=== PATIENT | female | born 1985 | race Caucasian/White ===

== ENCOUNTER 2017-12-02 11:55 | Emergency (ER) | payer BC, OTHER ==
[2017-12-02 12:51] LABS: BASO % 0.3 % (0.0-1.0); EOS # 0.1 10^3/uL (0.0-0.50); EOS % 1.1 % (0.0-3.0); HEMATOCRIT 44.2 % (36.0-47.0); HEMOGLOBIN 15.1 g/dl (12.0-15.5); IMMATURE GRANULOCYTE % 0.5 % (0-3.0); LYMPH # 3.1 10^3/uL (1.5-4.5); LYMPH % 26.9 % (24.0-44.0); MEAN CORPUSCULAR HEMOGLOBIN 29.3 pg (27.0-33.0); MEAN CORPUSCULAR HGB CONC 34.2 g/dl (32.0-36.5); MEAN CORPUSCULAR VOLUME 85.8 fl (80.0-96.0); MONO # 0.6 10^3/uL (0.0-0.8); MONO % 5.3 % (0.0-5.0); NEUTROPHILS # 7.7 10^3/uL (1.8-7.7); NEUTROPHILS % 65.9 % (36.0-66.0); PLATELET COUNT, AUTOMATED 445 10^3/uL (150-450); RED BLOOD COUNT 5.15 10^6/uL (4.00-5.40); RED CELL DISTRIBUTION WIDTH 12.7 % (11.5-14.5); WHITE BLOOD COUNT 11.6 10^3/uL (4.0-10.0)
[2017-12-02 13:46] LABS: ANION GAP 6 MEQ/L (8-16); BLOOD UREA NITROGEN 16 MG/DL (7-18); CARBON DIOXIDE LEVEL 29 MEQ/L (21-32); CHLORIDE LEVEL 101 MEQ/L (98-107); CREATININE FOR GFR 0.64 MG/DL (0.55-1.30); GLOMERULAR FILTRATION RATE > 60.0 (>60); GLUCOSE, FASTING 82 MG/DL (70-100); POTASSIUM SERUM 4.9 MEQ/L (3.5-5.1); SODIUM LEVEL 136 MEQ/L (136-145); THYROID STIMULATING HORMONE 0.701 uIU/ML (0.358-3.740)
[2017-12-02] MEDS: KETOROLAC 30 MG/ML VIAL (J1885) IV (14:09)
[2017-12-02] MEDS: NS 1,000 ML IV ×2 (14:09→15:03)
[2017-12-02 14:44] LABS: ERYTHROCYTE SEDIMENTATION RATE 28 mm/hr (0-20)
[2017-12-02 14:48] LABS: KETONE, URINE AUTO RFX NEGATIVE (NEGATIVE); LEUKOCYTE ESTERASE UR AUTO RFX NEGATIVE (NEGATIVE); MUCUS, URINE RFX SMALL (NEGATIVE); NITRITE, URINE AUTO RFX NEGATIVE (NEGATIVE); RBC, URINE AUTO RFX 1 /HPF (0-3); SPECIFIC GRAVITY UR AUTO RFX 1.018 (1.002-1.035); SQUAM EPITHELIAL CELL UR AURFX 2 /HPF (0-6); WBC, URINE AUTO RFX 4 /HPF (0-3)
[2017-12-02] MEDS: METOCLOPRAMIDE INJ 10MG/2ML VIAL (J2765) IV (15:06)
[2017-12-02] MEDS: diphenhydrAMINE INJ 50MG/ML VIAL (J1200) IV (15:06)
[2017-12-02 15:18] LABS: ALBUMIN 3.4 GM/DL (3.2-5.2); ALBUMIN/GLOBULIN RATIO 0.77 (1.00-1.93); ALKALINE PHOSPHATASE 99 U/L (45-117); ALT/SGPT 43 U/L (12-78); AST/SGOT 32 U/L (7-37); BILIRUBIN,DIRECT < 0.1 MG/DL (0.0-0.2); BILIRUBIN,TOTAL 0.5 MG/DL (0.2-1.0); C REACTIVE PROTEIN QUANTITATIV 1.98 MG/DL (0.00-0.30); CK-MB VALUE MASS < 1.0 NG/ML (<3.6); CPK CREATINE PHOSPHOKINASE 62 U/L (26-192); LIPASE 100 U/L (73-393); MB/CK RELATIVE INDEX 1.61 (< OR =4); TOTAL PROTEIN 7.8 GM/DL (6.4-8.2); TROPONIN I < 0.02 NG/ML (< 0.10)
[2017-12-07 12:47] LABS: BEDSIDE GLUCOSE 99 MG/DL (70-105)
== END 2017-12-02 16:10 | disposition home or self-care (01) ==
LOC: M ED 11:55
DX: K58.9 Irritable bowel syndrome, unspecified (principal); E86.0 Dehydration; I95.1 Orthostatic hypotension; Z79.899 Other long term (current) drug therapy
CPT/HCPCS: J1200

== ENCOUNTER 2019-01-18 08:28 | Emergency (ER) | payer BC, OTHER, SELFPAY ==
[~2019-01-18] VITALS: Ht 162.6 cm; Wt 134.5 kg
[~2019-01-18 08:28] MED LIST: METH4TAB28 PO; PRED20TA PO
[2019-01-18] MEDS ORDERED: OMEP40CA97 PO (08:35)
[2019-01-18] MEDS ORDERED: [UNRECOGNIZED DRUG - OTHER] (08:35)
[2019-01-18] MEDS ORDERED: NS 1,000 ML IV ONE (09:30)
[2019-01-18] MEDS ORDERED: MORPHINE 4 MG/ML 1ML VIAL/SYRINGE (J2270) IV ONE ×2 (09:30→12:45)
[2019-01-18] MEDS ORDERED: ONDANSETRON 4MG/2ML VIAL (J2405) IV ONE (09:30)
[2019-01-18 09:59] LABS: BASO % 0.4 % (0.0-1.0); EOS # 0.1 10^3/uL (0.0-0.5); EOS % 1.5 % (0.0-3.0); HEMATOCRIT 40.9 % (36.0-47.0); HEMOGLOBIN 13.6 g/dl (12.0-15.5); LYMPH # 2.2 10^3/uL (1.5-5.0); LYMPH % 32.1 % (24.0-44.0); MEAN CORPUSCULAR HEMOGLOBIN 29.5 pg (27.0-33.0); MEAN CORPUSCULAR HGB CONC 33.3 g/dl (32.0-36.5); MEAN CORPUSCULAR VOLUME 88.7 fl (80.0-96.0); MONO # 0.4 10^3/uL (0.0-0.8); MONO % 6.4 % (0.0-5.0); NEUTROPHILS # 4.1 10^3/uL (1.5-8.5); NEUTROPHILS % 59.3 % (36.0-66.0); PLATELET COUNT, AUTOMATED 327 10^3/uL (150-450); RED BLOOD COUNT 4.61 10^6/uL (4.00-5.40); WHITE BLOOD COUNT 6.9 10^3/uL (4.0-10.0)
[2019-01-18 10:21] LABS: ALBUMIN 3.4 GM/DL (3.2-5.2); ALT/SGPT 30 U/L (12-78); BILIRUBIN,DIRECT < 0.1 MG/DL (0.0-0.2); BILIRUBIN,TOTAL 0.2 MG/DL (0.2-1.0); LIPASE 119 U/L (73-393); TOTAL PROTEIN 7.8 GM/DL (6.4-8.2)
[2019-01-18] MEDS: GASTROGRAFIN SOLUTION 30ML PO SCH ×2 (10:29→10:56)
[2019-01-18] MEDS ORDERED: ISOVUE-370 76% 100ML VIAL (Q9967) As Ordered ONE (11:58)
--- NOTE | 2019-01-18 12:35 | REP ---
Clinical: Left sided abdominal pain and bloody diarrhea. Technique: Axial contrast enhanced images from the lung bases to the pubic symphysis using oral (per protocol) and 100 ml Isovue 370 intravenous contrast material with coronal and sagittal re-formations. Findings: Lung bases are clear. Visualized heart and pericardium normal. Liver, spleen, pancreas, bilateral adrenal glands and kidneys are normal. Evidence for prior cholecystectomy. The enteric system is without obstruction or acute inflammatory process. Pelvis demonstrates normal bladder and age-appropriate uterus/adnexa. 2 cm fat containing periumbilical hernia identified. No ascites. No free air. No adenopathy. Abdominal aorta without aneurysm or dissection. Musculoskeletal structures intact. Impression: No acute abdominopelvic pathology appreciated. 2 cm fat containing periumbilical hernia. Electronically Signed by Floyd Cervantes MD 01/18/2019 12:27 P
[2019-01-18 12:43] LABS: APPEARANCE, URINE CLEAR (CLEAR); BACTERIA, URINE AUTO 1+ (NEGATIVE); BILIRUBIN, URINE AUTO NEGATIVE (NEGATIVE); BLOOD, URINE BLOOD NEGATIVE (NEGATIVE); COLOR, URINE STRAW (YELLOW); GLUCOSE, URINE (UA) AUTO NEGATIVE (NEGATIVE); KETONE, URINE AUTO NEGATIVE (NEGATIVE); LEUKOCYTE ESTERASE, URINE AUTO NEGATIVE (NEGATIVE); NITRITE, URINE AUTO NEGATIVE (NEGATIVE); PROTEIN, URINE AUTO NEGATIVE (NEGATIVE); RBC, URINE AUTO 1 /HPF (0-3); SPECIFIC GRAVITY URINE AUTO 1.024 (1.002-1.035); SQUAMOUS EPITHELIAL CELL UR AU 1 /HPF (0-6); UROBILINOGEN, URINE AUTO 0.2 mg/dL (0.0-2.0); WBC, URINE AUTO 2 /HPF (0-3)
[2019-01-18] MEDS ORDERED: KETOROLAC 30 MG/ML VIAL (J1885) IV ONE (13:15)
[2019-01-18] MEDS ORDERED: KETO10TAB PO (13:59)
[2019-01-18 14:10] VITALS: BP 123/66
== END 2019-01-18 14:43 | disposition home or self-care (01) ==
LOC: M ED 08:28
DX: R10.9 Unspecified abdominal pain (principal); K58.9 Irritable bowel syndrome, unspecified; Z79.899 Other long term (current) drug therapy
CPT/HCPCS: 74177; 80047; 80076; 81001; 83605; 83690; 85025; 93041; 96361; 96374; 96375; 96376; 99284; J1885; J2270; J2405; Q9963; Q9967

== ENCOUNTER 2019-05-08 18:18 | Emergency (ER) | payer SELFPAY ==
[~2019-05-08] VITALS: Ht 162.6 cm; Wt 131.8 kg
[~2019-05-08 18:18] MED LIST changes: +KETO10TAB PO; -METH4TAB28 PO; +METH4TAB8 PO; +OMEP40CA97 PO; +[UNRECOGNIZED DRUG - OTHER]
[2019-05-08] MEDS ORDERED: LIDOCAINE 4% CREAM 5GM (LMX4) TOP ONE (19:30)
[2019-05-08] MEDS ORDERED: NS 1,000 ML IV ONE (19:30)
[2019-05-08 19:48] LABS: BASO % 0.2 % (0.0-1.0); EOS # 0.1 10^3/uL (0.0-0.5); EOS % 1.2 % (0.0-3.0); HEMATOCRIT 42.4 % (36.0-47.0); HEMOGLOBIN 14.3 g/dl (12.0-15.5); LYMPH # 2.6 10^3/uL (1.5-5.0); MEAN CORPUSCULAR HEMOGLOBIN 29.5 pg (27.0-33.0); MEAN CORPUSCULAR HGB CONC 33.7 g/dl (32.0-36.5); MEAN CORPUSCULAR VOLUME 87.6 fl (80.0-96.0); MONO # 0.6 10^3/uL (0.0-0.8); MONO % 6.9 % (0.0-5.0); NEUTROPHILS # 4.9 10^3/uL (1.5-8.5); NEUTROPHILS % 59.5 % (36.0-66.0); PLATELET COUNT, AUTOMATED 361 10^3/uL (150-450); RED BLOOD COUNT 4.84 10^6/uL (4.00-5.40); WHITE BLOOD COUNT 8.3 10^3/uL (4.0-10.0)
[2019-05-08] MEDS ORDERED: ISOVUE-370 76% 100ML VIAL (Q9967) As Ordered ONE (19:58)
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
[2019-05-08] MEDS ORDERED: KETOROLAC 30 MG/ML VIAL (J1885) IV ONE (21:30)
[2019-05-08 21:54] VITALS: BP 102/62
== END 2019-05-08 21:59 | disposition home or self-care (01) ==
LOC: M ED 18:18
DX: R10.12 Left upper quadrant pain (principal); R07.9 Chest pain, unspecified; K42.9 Umbilical hernia without obstruction or gangrene; R42 Dizziness and giddiness; K50.90 Crohn's disease, unspecified, without complications; M06.9 Rheumatoid arthritis, unspecified
CPT/HCPCS: 74160; 80047; 84702; 85025; 96361; 96374; 99284; J1885; Q9967

== ENCOUNTER 2021-01-23 16:14 | Emergency (ER) | payer OTHER, SELFPAY ==
[~2021-01-23] VITALS: Ht 162.6 cm; Wt 138.6 kg
[~2021-01-23 16:14] MED LIST changes: +OMEP40CA4 PO; -OMEP40CA97 PO
--- OUTSIDE RECORDS SUMMARY | 2021-01-23 16:21 | CCD ---
Author Author [facility] Organization [facility] Address Unknown Phone Unavailable Care Team Providers Care Enforcement Manager Name Role Phone NON, PROVIDER STAFF Unavailable Unavailable Gonzalez, Langley Luana Unavailable Unavailable Gonzalez, Langley Luana Unavailable Unavailable Gonzalez, Langley Luana Unavailable Unavailable Gonzalez, Langley Luana Unavailable Unavailable Gonzalez, Langley Luana Unavailable Unavailable Gonzalez, Langley Luana Unavailable Unavailable Gonzalez, Langley Luana Unavailable Unavailable Gonzalez, Langley Luana Unavailable Unavailable Gonzalez, Langley Luana Unavailable Unavailable Gonzalez, Langley Luana Unavailable Unavailable Gonzaelz, Langley Luana Unavailable Unavailable Gonzalez, Langley Luana Unavailable Unavailable Gonzalez, Langley Luana Unavailable Unavailable Kiarra WATSON MD Unavailable Unavailable CHANLIECWENDI, Kiarra PEREZ MD Unavailable Unavailable CHANLIECKiarra ADAME MD Unavailable Unavailable CHANLIECKiarra ADAME MD Unavailable Unavailable CHANLIKiarra MANCIA MD Unavailable Unavailable CHANLIKiarra MANCIA MD Unavailable Unavailable CHANLIKiarra MANCIA MD Unavailable Unavailable Kiarra WATSON MD Unavailable Unavailable Kiarra WATSON MD Unavailable Unavailable CHANLIKiarra MANCIA MD Unavailable Unavailable CHANLIKiarra MANCIA MD Unavailable Unavailable Re-disclosure Warning The records that you are about to access may contain information from federally-assisted alcohol or drug abuse programs. If such information is present, then the following federally mandated warning applies: This information has been disclosed to you from records protected by federal confidentiality rules (42 CFR part 2). The federal rules prohibit you from making any further disclosure of this information unless further disclosure is expressly permitted by the written consent of the person to whom it pertains or as otherwise permitted by 42 CFR part 2. A general authorization for the release of medical or other information is NOT sufficient for this purpose. The Federal rules restrict any use of the information to criminally investigate or prosecute any alcohol or drug abuse patient.The records that you are about to access may contain highly sensitive health information, the redisclosure of which is protected by Article 27-F of the [facility] Public Health law. If you continue you may have access to information: Regarding HIV / AIDS; Provided by facilities licensed or operated by the [facility] Office of Mental Health; or Provided by the [facility] Office for People With Developmental Disabilities. If such information is present, then the following [facility] mandated warning applies: This information has been disclosed to you from confidential records which are protected by state law. State law prohibits you from making any further disclosure of this information without the specific written consent of the person to whom it pertains, or as otherwise permitted by law. Any unauthorized further disclosure in violation of state law may result in a fine or skilled nursing sentence or both. A general authorization for the release of medical or other information is NOT sufficient authorization for further disc losure. Allergies and Adverse Reactions Type Description Substance Reaction Status Data Source(s ) Allergy to substance Allergy to substance Allergy to substance [facility] ([facility]) Allergy to substance Allergy to substance Allergy to substance [facility] ([facility]) Family History Family Member Name Family Member Gender Family Member Status Date o f Status Description Data Source(s) Unknown Male Problem MEDENT ([facility]) Unknown Unknown Problem [facility]) Encounters Encounter Providers Location Date Indications Data Source(s ) LELIA Layne: [address] [place] [address], Ph. Attender: Luana ORELLANA - [facility] Medical 09/04/2020 12:00:00 AM EDT FEMI ([facility]) CORRINE LayneC: [address] [place] [address], Ph. Attender: Luana Gonzalez [facility] Medical 08/14/2020 12:00:00 AM EDT [facility]) Luana Gonzalez, BUILDING ECONOMIST-C: [address] [place] [phone], Ph. Attender: Luana Gonzalez [facility] Medical 08/14/2020 12:00:00 AM EDT [facility] ([facility]) Emergency Attender: KARINA WATSON MDConsultant: STAF F NON 03/30/2020 11:05:00 AM EST - 03/30/2020 01:43:00 PM [facility] Patient discharged. Immunizations Vaccine Date Status Description Data Source(s) COVID-19, mRNA, LNP-S, PF, 30 mcg/0.3 mL dose 09/04/2020 05: 43:24 PM EDT completed .3 mL [facility] ([facility]) COVID-19 VACCINE Pfizer 09/04/2020 12:00:00 AM EDT completed [place] Vaccine Series Complete: YESThis Data wa s Submitted to [facility] [employer]. COVID-19, mRNA, LNP-S, PF, 30 mcg/0.3 mL dose 08/14/2020 06: 40:35 PM EDT completed .3 mL [facility] ([facility]) COVID-19, mRNA, LNP-S, PF, 30 mcg/0.3 mL dose 08/14/2020 06: 40:35 PM EDT completed .3 mL [facility] ([facility]) COVID-19 VACCINE Pfizer 08/14/2020 12:00:00 AM EDT completed [place] Vaccine Series Complete: NOThis Data was Submitted to [facility] [employer]. Medications No Information Insurance Providers Payer name Policy type / Coverage type Policy ID Covered constitution party ID Covered constitution party's relationship to phillips Policy Phillips Plan Information [facility] [id number] Self [id number] O UNAVAILABLE UNAVAILA BLE SELF PAY ONLY [id number] SP YLS [id number] [facility] [id number] SP [id number] [facility] DIV [id number] SP [id number] [facility] [id number] Self [id number] [facility] [id number] Self [id number] [facility] [id number] Self [id number] [facility] [id number] [facility] DIV [id number] SP [id number] SELF PAY ONLY [id number] [facility] [id number] Self [id number] Problems, Conditions, and Diagnoses Code Display Name Description Problem Type Effective Dates Data Source(s) K7689 Other specified diseases of liver Other specifie d diseases of liver Diagnosis 03/30/2020 11:05:00 AM [facility] K5000 Crohn's disease of small intestine witho ut complications Crohn's disease of small intestine without complications Diagnosis 03/30/2020 11:05:00 AM [facility] R197 Diarrhea, unspecified Diarrhea, unspecified Diagnosis 03/30/2020 11:05:00 AM [facility] Surgeries/Procedures No Information Results ID Date Data Source [id number] 04/02/2020 09:20:00 AM [facility] [address] [place] [address] PHONE: [phone] FAX: [phone] Name .................. : RONALD Herrera Acct Number.................. : [id number] ROOM. ................. : TR-08 MR Number ................... : [id number] Stay type ............. : E/R Discharge Date......... ... : 03/30/20 Admit Date ....... .. : 03/30/20 [facility] .................... [facility] Date of ....... : 1985 Family Phys ................... : NON STAFF Phone .................. : [phone] Age ................................ : 34 Film# .................. .:[id number] Sex ................................. : F Unsigned transcriptions are preliminary reports and do not represent a medical or legal document CT ABD & PELVIS W/ IV ONLY [id number] COMPLETE:03/30/20 13:29 BEM 1761 Reason(s): Abdominal Pain CT OF THE ABDOMEN AND PELVIS WITH CONTRAST: CLINICAL HISTORY: Abdominal pain. FINDINGS: The lung bases that are visualized are clear. No focal infiltrate or consolidation is identified. No discrete nodule or mass is present. The heart appears unremarkable. There is suspicion for a subtle hepatic lesion measuring approximately 1.9 cm in the right hepatic lobe. It is unclear if this is artifactual or an actual lesion. An Eovist-enhanced MRI should be considered for further evaluation. The spleen, adrenal glands, pancreas and bilateral kidneys appear unremarkable. There is no hydronephrosis o r nephrolithiasis identified. The appendix is visualized and appears unremarkable. There is a fat-containing umbilical hernia identified. No free fluid is identified in the pelvis. The urinary bladder appears unremarkable. The osseous structures appear unremarkable. IMPRESSION: Fat-containing umbilical hernia. Status post cholecystectomy. Suspicion for a hepatic lesion in the right hepatic lobe on image #24. An Eovist-enhanced MR should be considered. The appendix is normal. No free fluid. While performing the above CT examination, radiation dose reduction was accomplished utilizing automated exposure control, adjusting of the mA and kV based on the patient's body size and/or the use of imperative reconstructive techniques. CT dose: 2239.3 mGycm Contrast agent in mL: 75 Isovue 370 Method of administration: Intravenous Page 1 of 2 [facility] [address] [place] [address] PHONE: [phone] FAX: [phone] Name .................. : RONALD Herrera Acct Number.................. : [id number] ROOM. ................. : TR08 MR Number ................... : [id number] Stay type ............. : E/R Discharge Date......... ... : 03/30/20 Admit Date ......... : 03/30/20 Admit Phys .................... : [facility] Date of ....... : 1985 Family Phys ................... : NON STAFF Phone .................. : [phone] Age ................................ : 34 Film# .................. .:[id number] Sex ................................. : F Unsigned transcriptions are preliminary reports and do not represent a medical or legal document CT ABD & PELVIS W/ IV ONLY [id number] COMPLETE:03/30/20 13:29 BEM 1761 Reason(s): Abdominal Pain Examination dictated by VIOLA Landry. Examination was reviewed with Washington Sellers MD, radiologist at the time of this dictation. Electronically Reviewed and Signed By Washington Sellers MD , 04/02/20 09:20, KGG Transcribe Initials: DZ , Transcribe Date: 03/31/20 04:08, Dictation Date: Copy for: [facility] via fax Copy for: EMERGENCY DEPT via modem Copy for: 710 MED REC DISCHARGED Page 2 of 2 Name Value Range Interpretation Code Description Data Zoila rce(s) Supporting Document(s) ID Date Data Source [id number] 03/30/2020 11:05:00 AM EST [facility] 1 OrderSheet [facility] Emergency Department [address] [place] [address] Phone #: [phone]- [phone] 03/30/2020 10:45 Patient: ELMIRA CARDENAS Sex: F : 1985 Age: 34yWEIGHT:129.2 kg (S) HEIGHT:64 inches (S) BMI:48.9ALLERGIES: Demerol, Morphine and Related, PercocetCHIEF COMPLAINT: abdominal pain, diarrhea, crampsDIAGNOSIS: Colitis, ProblemLAB ORDERSOrder Description Priority Entered Acknowledged InitialedUrinalysis (Clean STAT 11:04 03/30/2020 11:04 Rehana Spencer) Delores Spencer R.N.; R.N. [facility] 11:32 03/30/2020 11:43 Thomas Lantigua R.N.; Reason for ordering with alerts: Clinical consideration given -- 11:03/30/2020 Thomas Radford PACMP STAT 11:03/30/2020 11:43 Thomas Lantigua R.N.; Reason for ordering with alerts: Clinical consideration given -- 11:03/30/2020 Thomas Radford PALactic Acid STAT 11:03/30/2020 11:43 Thomas Lantigua R.N.; Reason for ordering with alerts: Clinical consideration given -- 11:03/30/2020 Thomas Radford PALipase STAT 11:03/30/2020 11:43 Thomas Lantigua R.N.; Reason for ordering with alerts: Clinical consideration given -- 11:03/30/2020 Thomas Radford PAPT/PTT STAT 11:03/30/2020 11:43 Thomas Lantigua R.N.; Reason for ordering with alerts: Clinical consideration given -- 11:03/30/2020 Thomas Radford PAUrinalysis (Clean STAT 11:03/30/2020 11:49 Gianna Lantigua R.N. 2 OrderSheet [facility] Emergency Department [address] [place] [address] Phone #: ext- [phone] 03/30/2020 10:45 Patient: ELMIRA CARDENAS Sex: F : 1985 Age: 34y PA; Reason for ordering with alerts: Clinical consideration given -- 11:03/30/2020 Thomas Radford PADIAGNOSTIC STUDY ORDERSOrder Description Priority Entered Acknowledged InitialedCT Abd PEL W/ IV STAT 11:03/30/2020 11:49 Princess Lantigua Only Thomas Mi R.N.(Oxygen?(No)) VIOLA;(IV?(Yes)) Reason for ordering with alerts: Clinical consideration given -- :03/30/2020 Thomas ROD Reason for Study: Abdominal Pain, GI BleedMEDICATION/IV/DRIP/FLUID ORDERSOrder Description Priority Entered Acknowledged InitialedIV NS : Bolus 1000 11:03/30/2020 11:44 Grzegorz,mL, then 150 mL/hr Thomas ROD; Reason for ordering with alerts: Clinical consideration given -- 11:03/30/2020 Thomas Radford PAOfirmev IV 1000 mg 11:03/30/2020 11:59 Grzegorz,(NOW x1, Infuse Thomas Mi R.N.over 15 minutes) VIOLA; Reason for ordering with alerts: Clinical consideration given -- 11:03/30/2020 Thomas Radford PAZofran IVP 8 mg 11:03/30/2020 11:49 Thomas Lantigua R.N.; Reason for ordering with alerts: Clinical consideration given -- 11:03/30/2020 Thomas Radford PABentyl PO 10 mg 12:03/30/2020 12:33 Thomas Lantigua R.N.; Reason for ordering with alerts: Clinical consideration given -- 12:03/30/2020 Thomas Radford PAGENERAL ORDERSOrder Description Priority Entered Acknowledged Initialed[Electronically signed by Shmuel Lantigua R.N. (13:43 03/30/2020)][Electronically signed by Thomas Radford (21:19 03/30/2020)][Electronically locked by Shmuel Lantigua R.N. (13:43 03/30/2020)] 3 OrderSheet [facility] Emergency Department [address] [place] [address] Phone #: ext- [phone] 03/30/2020 10:45 Patient: ELMIRA CARDENAS Sex: F : 1985 Age: 34y Name Value Range Interpretation Code Description Data Zoila rce(s) Supporting Document(s) ID Date Data Source [id number] 03/30/2020 11:05:00 AM EST [facility] 1 Medication Reconciliation Report [facility] Emergency Department [address] [place] [address] Phone #: ext- [phone] 03/30/2020 10:45 Patient: ELMIRA CARDENAS Sex: F : 1985 Age: 34yWeight: 129.2 kgHeight/Length: 64 in.BMI: 48.9ALLERGIES: Demerol, Morphine and Related, PercocetThe patient's Home Medications are listed below:NONE.The source(s) of the original Home Medication information:Not obtained.The following Medications were given to the patient in the Emergency Department:IV NS IV Fluids bolus 0, then 750 mL/hr, administered: 11:44 03/30/2020Zofran [IVP] IVP 8 mg, administered: 11:49 03/30/2020ofirmev Drip IV bolus 0, then 1000, administered: 11:59 03/30/2020entyl [PO] PO 10 mg, administered: 12:33 03/30/2020The following Medications were prescribed to the patient:dicyclomine 10 mg capsule Take 1 capsule four times a day for 10 days -- Dispense 40 capsule.Refills: 0. Substitution permitted.Pharmacy - [facility] [phone] [facility] [address] ; [place] [address]. .Medrol (Jose) 4 mg tablets in a dose pack Take 1 tablet as directed for 6 days -- Dispense 1 pack.Refills: 0. Substitution permitted.Pharmacy - [facility] [phone] [facility] [address] ; [place] [address]. . -- VIOLA Potts Name Value Range Interpretation Code Description Data Zoila rce(s) Supporting Document(s) ID Date Data Source [id number] 03/30/2020 11:05:00 AM EST [facility] 1 Medication Administration Record [facility] Emergency Department [address] [place] [address] Phone #: ext- [phone] 03/30/2020 10:45 Patient: ELMIRA CARDENAS Sex: F : 1985 Age: 34yWeight: 129.2 kgHeight/Length: 64 inBMI: 48.9ALLERGIES: Percocet, Demerol, Morphine and Related Date/Time Medication Administered Medication OrderedStart IV NS IV NS : Bolus 1000 mL, then 31045:44 03/30/2020 Dose: IV Fluids mL/hrShmuel Lantigua R.N. Rate: 750 mL/hr over 1 hour(s)---- Dispensed: 1000 mL bagStop Site: #1 right :42 03/30/2020Shmuel Lantigua R.N.Start ofirmev * Ofirmev IV 1000 mg (NOW x1,11:59 03/30/2020 Dose: 1000 * Drip IV Infuse over 15 minutes)Shmuel Lantigua R.N.----Stop13:18 03/30/2020Shmuel Lantigua R.N.Given ZOFRAN [IVP] (ONDANSETRON HCL) Zofran IVP 8 mg11:49 03/30/2020 Dose: 8 mg IVPGroShmuel mancilla R.N. Site: #1 right forearmGiven BENTYL [PO] (DICYCLOMINE HCL) Bentyl PO 10 mg12:33 03/30/2020 Dose: 10 mg Capsules Shmuel Salinas R.N. Name Value Range Interpretation Code Description Data Zoila rce(s) Supporting Document(s) ID Date Data Source [id number] 03/30/2020 11:05:00 AM EST [facility] 1 General Instructions [facility] Emergency Department [address] [place] [address] Phone #: ext- [phone] 03/30/2020 10:45 Patient: ELMIRA CARDENAS Sex: F : 1985 Age: 34yAcute Crohn's disease involving small bowel with bleeding. ;abnormal CT of the abdomen and pelvis. (Liver mass).INSTRUCTIONSWarnings: Further evaluation is necessary in order to conduct further tests. It is very important to follow upwith a healthcare provider.Your Current Medications: .No home medication.Prescription Medications:dicyclomine 10 mg capsule Take 1 capsule four times a day for 10 days -- Dispense 40 capsule.Refills: 0. Substitution permitted.Pharmacy - [facility] [phone] [facility] [address] ; [place] [address]. FaxNumber: [phone].Medrol (Jose) 4 mg tablets in a dose pack Take 1 tablet as directed for 6 days -- Dispense 1 pack.Refills: 0. Substitution permitted.Pharmacy - [facility] [phone] - [phone] [facility] [address] ; [place] [address]. .Understanding of the discharge instructions verbalized by patient.Follow-up with: [facility], , , [address] [facility], [place], [address] Follow up. Call for the next available appointment. Reason for referral: evaluation, treatment and ptneeds referral to GI specialist and MRI of Liver mass. Summary of care provided to patient. ADDITIONAL INFORMATIONUlcerative ColitisYou have been diagnosed with ulcerative colitis. Ulcerative colitis is a long-term (chronic) conditionthat causes inflammation and ulcers in the rectum and colon. It is a form of inflammatory boweldisease (IBD). The disease is often diagnosed by a special procedure called a colonoscopy. Thesymptoms often develop over time. There is no medicine that can cure ulcerative colitis. The goal of 2 General Instructions [facility] Emergency Department [address] [place] [address] Phone #: ext- [phone] 03/30/2020 10:45 [id number] Sex[facility] F : 1985 Age: 34ytreatment is to reduce the symptoms, and cause a remission.Symptoms of ulcerative colitis include: Belly (abdominal) cramps and pain Diarrhea, often bloody Rectal bleeding Rectal pain Fever Decreased appetite and weight loss Low energy Inflammation outside of the colon can occur and can cause pain or swelling in places such as the eyes, skin, and jointsHome careNo one knows what exactly causes IBD. The goal is to control and relieve the symptoms and preventcomplications, so you can lead a full and active life. No medicine can cure the disease. In somecases, surgery to remove the whole colon can be healing. But surgery causes other side effects, somedicines are often preferred. Discuss your options with your healthcare provider.DietYour diet did not cause your condition, but it can affect it. Unfortunately, there is no one diet thatworks for everyone, so you have to expe riment. Below are some recommendations, but what worksfor you may be different. Keep a food log to figure out what you are sensitive to. Eat more slowly. Eat smaller amounts at a time, but more often. Remember, you can always eat more, but can't eat less once you've eaten too much. High-fiber foods are complicated. While they may help constipation, they can make bloating, cramping, gas, and diarrhea worse. Eat less sugar. Try cutting out dairy products if you feel you are sensitive to lactose. Try cutting out foods that are high in fat and fatty meats. You can control bloating and passing excess gas. Be careful with "gassy" vegetables and fruits like beans, cabbage, broccoli, and cauliflower. 3 General Instructions [facility] Emergency Department [address] [place] [address] Phone #: ext- [phone] 03/30/2020 10:45 Patient: ELMIRA CARDENAS Sex: F : 1985 Age: 34y Be careful of carbonated drinks and fruit juices. They can make bloating and diarrhea worse. Caffeine, alcohol, and stimulants may make symptoms worse.LifestyleStress doesn't cause IBD. But it is a factor in flare-ups, and how you feel and react to your condition. Look for things that seem to make your symptoms worse, such as stress and emotions. Counseling can help you deal with stress. So can self-help treatments such as exercise, yoga, and meditation. Depression can be a part of this illness and antidepressant medicine may be prescribed. This may actually help with diarrhea, constipation, and cramping, as well as symptoms of depression. Lack of sleep can make symptoms seem worse. Alcohol use can make symptoms wors e.MedicinesYour healthcare provider may prescribe medicines. Take them as directed. In most cases, you willneed to take the medicines for the rest of your life. For acute flares, additional prescription medicinescan be prescribed. Call your provider if you need these. Ask your healthcare provider before taking any medicines for diarrhea. Don't take anti-inflammatory medicines such as ibuprofen or naproxen. Think about taking nutritional supplements. This is especially true if the diarrhea is prolonged, or you aren't eating, or you are losing weight.Follow-up careFollow up with your healthcare provider, or as advised. Tell your provider if you lose more than 5pounds over 3 to 6 months, and you aren't trying to lose weight.If a stool sample was taken, or cultures were done, you will be told if they are positive, or if yourtreatment needs to be changed. You can call as directed for results.If X-rays were done, a radiologist will look at them. You will be told if you need a change in ren atmentIt is very important to tell your healthcare provider if you plan to get , or find out you are. You will need to discuss your disease, medicines, and plan as early as possible andpreferably before you conceive. 4 General Instructions [facility] Emergency Department [address] [place] [address] Phone #: [phone]- [phone] 03/30/2020 10:45 Patient: ELMIRA CARDENAS Sex: F : 1985 Age: 34yCall 911Call 911 if any of these occur: Trouble breathing Confusion Very drowsy or trouble waking up Fainting or loss of consciousness Rapid heart rate Chest painWhen to seek medical adviceCall your healthcare provider right away if any of these occur: Bleeding from your rectum Frequent diarrhea or belly pain that's not controlled by your medicine Bloody diarrhea Fever of 100.4F (38C) or higher, or as directed by your healthcare provider Nausea that does not get better, or repeated vomiting [id number] [employer]. [address] [place] [address], [place] [address]. All rights reserved. This information is not intended as asubstitute for professional medical care. Always follow your healthcare professional's instructions. You have been given the following additional information: Ulcerative Colitis(Electronically signed by VIOLA Potts 03/30/2020 21:19) Name Value Range Interpretation Code Description Data Zoila rce(s) Supporting Document(s) ID Date Data Source [id number] 03/30/2020 11:05:00 AM EST [facility] 1 Clinical Report - Nurses [facility] Emergency Department [address] [place] [address] Phone #: ext- [phone] 03/30/2020 10:45 Patient: ELMIRA CARDENAS Sex: F : 1985 Age: 34yTRIAGEArrived by private vehicle. Historian: patient. Accompanied by family. ( had abd pain on thursday,thursday rectal bleeding , now has cramping, left side of abd swelling and also has leg cramping).Acuity: LEVEL 3.Chief Complaint: ABDOMINAL PAIN and RECTAL BLEEDING.Alert.Onset. (thursday). The patient has had diarrhea and abdominal pain. The pain is described as located inthe lower abdomen and associated with diarrhea.Treatment SKIP LOCATOR:None.SEPSIS SCREEN: SIRS SCREEN NEGATIVE. SEPSIS SCREEN NEGATIVE. No suspected or confirmedsigns of infection present. --11:02 03/30/20 Delores Spencer R.N.10:53 03/30/20. BP: 145/99. MAP: 114. HR: 85. RR: 18. O2 saturation: 97%. Temp: 98.6 F. Pain levelnow: 10. --11:02 03/30/20 Delores Spencer R.N.Weight: 129.2 kg stated. Height/Length: 64 inches Per Patient. BMI: 48.9. --10:52 03/30/20 Delores Spencer R.N.MedicationsNone. --10:58 03/30/20 Delores Spencer R.N.AllergiesDemerol.Morphine and Related.(itching) --10:58 03/30/20 Delores Spencer R.N.Percocet.(itching) --10:58 03/30/20 Delores Spencer R.N.PROBLEMS:Rheumatoid Arthritis.Arthritis.Crohn's Disease. --10:59 03/30/20 Delores Spencer R.N.ADDITIONAL SURGERIES:Cholecystectomy.C- Section.Knee Surgery. --10:59 03/30/20 Delores Spencer R.N. 2 Clinical Report - Nurses [facility] Emergency Department [address] [place] [address] Phone #: ext- [phone] 03/30/2020 10:45 Patient: ELMIRA CARDENAS Sex: F : 1985 Age: 34y History PAST MEDICAL HX: Immunizations: up-to-date. Last normal menstrual period- Mar 25. SOCIAL HX: Never smoker. No alcohol use or drug use. The patient was offered HIV testing but declined and hepatitis C testing but declined. The patient has not traveled outside the [place] Infectious disease exposure: No infectious disease exposure. The patient was exposed to C-diff. (treated). Patient is not a known carrier of tuberculosis, hepatitis, HIV, MRSA or VRE. Patient is not a known carrier of CRE. SELF HARM ASSESSMENT: Self harm assessment was performed. The patient answered "no" to the question(s) "Have you recently felt down, depressed, or hopeless?", "Do you have thoughts of harming or killing yourself?", "Do you have a plan for harming or killing yourself?", "Have you recently had thoughts about harming or killing others?", "Do you have any dangerous items in your possession?", "Have you noticed less interest or pleasure in doing things?", "Are you here because you tried to hurt yourself?" and "Have you ever tried to hurt yourself before today?". ABUSE ASSESSMENT: A buse assessment. Abuse denied. No suspicion of abuse. No report of abuse. NUTRITIONAL RISK ASSESSMENT: The nutritional risk assessment revealed no deficiencies. FUNCTIONAL ASSESSMENT: Functional assessment: no impairments noted. LEARNING NEEDS ASSESSMENT: The learning needs assessment revealed no barriers. FALL RISK ASSESSMENT: Fall risk assessment completed. No risk factors identified. SKIN INTEGRITY ASSESSMENT: Skin integrity risk assessment completed. No skin integrity risk identified. --11:03/30/20 Delores Spencer R.N. Interventions Identification band on patient. To treatment room. --11:03/30/20 Delores Spencer R.N.PHYSICAL ASSESSMENTGENERAL / NEURO / PSYCH: Alert. Oriented X 4. Appears in no acute distress.RESPIRATORY: Respirations not labored.CVS: Normal sinus rhythm noted.SKIN: Skin is warm and dry. --11:20 03/30/20 Shmuel Lantigua R.N.NURSING PROGRESS NOTESPatient gowned. Reassurance given. Patient identifiers checked. Call light placed in reach. Side railsup x 2. Bed placed in lowest position. Brakes of bed on. Patient ready for evaluation- ED physician andPA notified. --11:03 03/30/20 Delores Spencer R.N. 11:44 03/30/2020 Site #1 started via IV in the right forearm with an 20g angiocath; one attempt. Blood drawn: rainbow set. Saline lock flushed with 5 mL saline. --11:44 03/30/20 Shmuel Lantigua R.N. 3 Clinical Report - Nurses [facility] Emergency Department [address] [place] [address] Phone #: ext- [phone] 03/30/2020 10:45 Patient: ELMIRA CARDENAS Sex: F : 1985 Age: 34y 11:44 03/30/2020 Started bag #1 1000 mL IV Fluids IV NS; at 750 mL/hr over 1 hour(s) via site #1 --11:44 03/30/20 Shmuel Lantigua R.N. 11:49 03/30/2020 Zofran (Ondansetron HCl) IVP 8 mg given over 3 minute(s) via site #1. --11:49 03/30/20 Shmuel Lantigua R.N. 11:59 03/30/2020 ofirmev * Drip IV 1000 --11:59 03/30/20 Shmuel Lantigua R.N. 12:33 03/30/2020 Bentyl (Dicyclomine HCl) PO Capsules 10 mg given. --12:33 03/30/20 Shmuel Lantigua R.N. Reassurance given to the patient. Rounding: Pain: assessed pain level. ( pt still complaining of crampy type abdominal pain. PA notified and ordered meds.). --12:34 03/30/20 Shmuel Lantigua R.N. 13:18 03/30/2020 Ofirmev Drip IV Discontinued: bag #2 infused. Total amount infused: 100 mL. --13:43 03/30/20 Shmuel Lantigua R.N. 13:42 03/30/2020 IV Fluids IV NS via IV site #1 Discontinued: bag #1 infused upon discharge. Total amount infused: 800 mL. --13:42 03/30/20 Shmuel Lantigua R.N.DISPOSITION / DISCHARGE No learning barriers present. Discharge instructions provided and reviewed with the patient. Written instructions provided in Surinamese. The patient was discharged by the physician placement assistant. She was discharged home. She left ambulatory and via private vehicle. Patient driving. --13:42 03/30/20 Shmuel Lantigua R.N. 13:41 03/30/20. BP: 138/78. MAP: 98. HR: 64. RR: 16. O2 saturation: deferred. Temp: deferred. Pain level now: 05/02. --13:42 03/30/20 Shmuel Lantigua R.N. Departure time: 13:42 03/30/2020. --13:42 03/30/20 Shmuel Lantigua R.N.Locked/Released at 03/30/2020 13:43 by Shmuel Lantigua R.N. Name Value Range Interpretation Code Description Data Zoila rce(s) Supporting Document(s) ID Date Data Source [id number] 03/30/2020 11:05:00 AM EST [facility] 1 Clinical Report - Physicians/Mid Levels [facility] Emergency Department [address] [place] [address] Phone #: ext- [phone] 03/30/2020 10:45 Patient: ELMIRA CARDENAS Sex: F : 1985 Age: 34y Time Seen: 11:25 03/30/2020. Arrived- By private vehicle. Historian- patient.HISTORY OF PRESENT ILLNESS Chief Complaint: ABDOMINAL PAIN and DIARRHEA and CRAMPS rectal bleeding. This started 5 days ago; had abd pain on thursday, thursday rectal bleeding , now has cramping, left side of abd swelling and also has leg cramping and is still present. It was abrupt in onset and has been constant. It is described as "pain" and cramping and it is described as located in the left abdomen. At its maximum, severity described as moderate. When seen in the E.D., severity described as moderate. No nausea, loss of appetite or vomiting. She has had diarrhea. Similar symptoms previously. Patient has had similar symptoms several times. Recent medical care: Not recently seen/assessed.REVIEW OF SYSTEMSLast normal menstrual period- Mar 25. No constipa tion, black stools, hematemesis, difficulty with urinationor pain with urination. No urinary frequency, fever, headache, sore throat or blurred vision. No chestpain, difficulty breathing, cough, joint pain or skin rash. No chills or back pain. The patient has hadbloody stools but not had weight loss.PAST HISTORYProblems:Rheumatoid Arthritis.Arthritis.Crohn's Disease. Additional Surgeries: Cholecystectomy. . Knee Surgery. Medications: None. Allergies: Demerol. Morphine and Related.(itching) Percocet.(itching).SOCIAL HISTORYNever smoker. No alcohol use or drug use. 2 Clinical Report - Physicians/Mid Levels [facility] Emergency Department [address] [place] [address] Phone #: ext- [phone] 03/30/2020 10:45 Patient: ELMIRA CARDENAS [facility]#: [id number] Sex: F : 1985 Age: 34yPHYSICAL EXAMVital Signs: 03/30/2020 10:53 BP: 145/99. MAP: 114. HR: 85. RR: 18. O2 saturation: 97%. Temp: 98.6 F.Pain level now: 08/30. Have been reviewed as abnormal. Hypertensive. Oxygen saturation normal.Appearance: Alert. Oriented X3. No acute distress.Eyes: Pupils equal, round and reactive to light. Eyes normal inspection.ENT: Ears normal. Nose normal. Pharynx normal.Neck: Normal inspection.CVS: Normal heart rhythm and rate. Heart sounds normal.Respiratory: No respiratory distress. Breath sounds normal.Abdomen: Nontender. Mild tenderness in the left side of the abdomen. Bowel sounds normal. Noorganomegaly. No mass.Back: Normal inspection.Skin: Skin warm and dry. Normal skin color. No rash. Normal skin turgor.Extremities: Extremities exhibit normal ROM. No lower extremity edema.Neuro: Oriented X 3.LABS, X-RAYS, AND EKGCT Abdomen - Pelvis: Appendix is normal. Fat-containing umbilical hernia. Suspicion for possible hepaticlesion image #24. MR should be considered for further evaluation. No free fluid. No acute findings.Abdomen - pelvic CT performed with IV contrast. The study was interpreted by the radiologist andcontemporaneously by me. Interpretation time: 13:18 03/30/2020.Laboratory Tests: Laboratory tests have been ordered, with results reviewed and considered in themedical decision making process. CBC w Diff: (VIGNESH: 03/30/2020 11:38) ( MsgRcvd 03/30/2020 12:22) Final results Test Result Flag Units (Reference) CBC W/AUTOMATED DIFF COMPLETE BLOOD COUNT WBC 5.8 10/uL (4.2 - 11.0) RBC 4.74 10/uL (4.20 - 5.40) HEMOGLOBIN 13.9 g/dL (12.0 - 16.0) HEMATOCRIT 41.0 % (37.0 - 47.0) MCV 86.5 fL (81.0 - 101) MCH 29.3 pg (27.0 - 34.0) MCHC 33.9 g/dL (31.0 - 36.0) RDW 12.2 % (11.5 - 14.5) PLATELETS 359 10/uL (150 - 450) MPV 9.4 fL (7.4 - 10.4) NEUT 53.6 % (37.0 - 80. 0) LYMPH 36.1 % (25.0 - 40.0) MONO 7.4 % (3.0 - 8.0) EOS 2.1 % (0.0 - 7.0) BASO 0.5 % (0.0 - 2.5) %IG 0.3 H % (0.0 - 0.0) %NRBC 0.0 % (0.0 - 0.0) #NEUT 3.13 10/uL (2.00 - 6.90) #LYMPH 2.11 10/uL (0.60 - 3.40) #MONO 0.43 10/uL (0.00 - 0.90) #EOS 0.12 10/uL (0.00 - 0.70) #BASO 0.03 10/uL (0.00 - 0.20) 3 Clinical Report - Physicians/Mid Levels [facility] Emergency Department [address] [place] [address] Phone #: ext- [phone] 03/30/2020 10:45 Patient: ELMIRA CARDENAS Sex: F : 1985 Age: 34y #IG 0.02 10/uL (0.00 - 0.10) #NRBC 0.00 10/uL (0.00 - 0.00) MANUAL DIFF NOT INDICATED RBC MORPH NOT INDICATEDCMP: (VIGNESH: 03/30/2020 11:38) ( MsgRcvd 03/30/2020 12:37) Final results Test Result Flag Units (Reference) COMPREHENSIVE METABOLIC PANEL COMPREHENSIVE METABOLIC PANEL SODIUM 136 mEq/L (134 - 153) POTASSIUM 4.3 mEq/L (3.6 - 5.0) CHLORIDE 100 mEq/L (98 - 107) CO2 26 MEQ/L (22 - 30) GLUCOSE 97 MG/DL (65 - 110) BUN 9 MG/DL (7 - 21) CREATININE 0.5 L MG/DL (0.7 - 1.5) BUN/CREAT 18 (8 - 27) TOTAL PROTEIN 7.4 G/DL (6.3 - 8.2) ALBUMIN 4.2 G/DL (3.9 - 5.0) GLOBULIN 3.2 GM/DL (2.4 - 3.2) A/G RATIO 1.3 (0.8 - 2.0) CALCIUM 8.9 MG/DL (8.4 - 10.2) TOTAL BILI <0.7 MG/DL (0.2 - 1.3) ALKALINE PHOS 78 U/L (38 - 126) SGOT/AST 27 U/L (5 - 40) SGPT/ALT 36 U/L (7 - 56) ANION GAP 10.0 mmol/L (8.0 - 16.0) AGE 34 yrs NON-AA GFR >60 mL/min AFR AMER GFR >60 mL/min Male GFR Interprentation 20-49 yrs >60 mL/min Qbyvis97-52 yrs >56 mL/min Normal 60-69 yrs >49 mL/min Normal 70-79yrs>42 mL/min Normal 80 and above >35 mL/min Normal Female GFRInterpretation 20-39 yrs >60 mL/min Normal 40-49 yrs >58 mL/minNormal 50-59 yrs >51 mL/min Normal 60-69 yrs >45 mL/min Pctklz66-15 yrs >39 mL/min Normal 80 and above >32 mL/min NormalLactic Acid: (VIGNESH: 03/30/2020 11:38) ( MsgRcvd 03/30/2020 12:11) Final results Test Result Flag Units (Reference) LACTIC ACID 1.5 MMOL/L (0.2 - 2.2)Lipase: (VIGNESH: 03/30/2020 11:38) ( WagRcvd 03/30/2020 12:30) Final results Test Result Flag Units (Reference) LIPASE 16 U/L (13 - 60)PT/PTT: (VIGNESH: 03/30/2020 11:38) ( MsgRcvd 03/30/2020 12:22) Final results Test Result Flag Units (Reference) PROTIME 12.6 SECONDS (11.0 - 15.5) INR 0.90 L (0.93 - 1.23) PTT 27.7 SECONDS (24.8 - 36.7) \\BLDo\\INR INTERPRETATION\\BLDx\\ Therapeutic range for Coumadin andrelated oral anticoagulants. -International Normalized Ratio (INR): 2.0 - 3.0 for VenousThrombosis, Pulmonary Embolus, Tissue heart valves, Acute AR Atrial Fibrillation, Valvular heart diseaseand recurrent Systemic Embolism. -International Normalized Ratio (INR): 2.5 - 3.5 forMechanical Prosthetic valve. 4 Clinical Report - Physicians/[facility] Emergency Department [address] [place] [address] Phone #: ext- [phone] 03/30/2020 10:45 Patient: ELMIRA CARDENAS Sex: F : 1985 Age: 34y Urinalysis: (VIGNESH: 03/30/2020 11:32) ( [facility] [place] [facility] 11:51) Canceled SOURCE: Clean Catch Urinalysis: (VIGNESH: 03/30/2020 10:05) ( [facility] [place] 03/30/2020 12:00) Final results Test Result Flag Units (Reference) URINALYSIS URINALYSIS SOURCE R COLOR yellow (NORMAL: Yello CLARITY hazy (NORMAL: Clear SPEC GRAVITY 1.020 ( 1.001 - 1.030 pH 5 (5 - 9) GLUCOSE NORM (NORMAL: Negat BILIRUBIN NEG (NORMAL: Negat KETONE NEG (NORMAL: Negat PROTEIN 15 (NORMAL: Negat NITRITE NEG (NORMAL: Negat BLOOD 25 A (NORMAL: Negat LEUK EST NEG (NORMAL: Negat UROBILINOGEN NOR (less than 1.0 MICROSCOPIC See Below WBC 1 - 3 (NORMAL: NONE RBC 1 - 3 (NORMAL: NONE EPITHELIAL MODERATE A (NORMAL: NONE BACTERIA 1+ SMALL (NORMAL: NONE.PROGRESS AND PROCEDURESCourse of Care: 13:Mar 30 2020. Evaluation after observation and results of tests back. (DiscussedCT, labs, exam findings and pt is agreeable with dx and tx plan.). Patient counseled in person regarding the patient's stable condition, test results, diagnosis and need for follow-up. Patient agrees with plan of care. 13:Mar 30 2020. Disposition: Discharged home in good and improved condition (13:Mar 30 2020).CLINICAL IMPRESSION Acute Crohn's disease involving small bowel with bleeding. ; abnormal CT of the abdomen and pelvis. (Liver mass).INSTRUCTIONS Warnings: Further evaluation is necessary in order to conduct further tests. It is very important to follow up with a healthcare provider. 5 Clinical Report - Physicians/Mid Levels [facility] Emergency Department [address] [place] [address] Phone #: ext- [phone] 03/30/2020 10:45 [id number] 1985 Age: 34y Your Current Medications: . No home medication. Prescription Medications: dicyclomine 10 mg capsule Take 1 capsule four times a day for 10 days -- Dispense 40 capsule. Refills: 0. Substitution permitted. Pharmacy - [facility] [address] ; [place] [address]. . Medrol (Jose) 4 mg tablets in a dose pack Take 1 tablet as directed for 6 days -- Dispense 1 pack. Refills: 0. Substitution permitted. Pharmacy - [facility] [phone] ; [place] [address]. . Understanding of the discharge instructions verbalized by patient. Follow-up with: [facility], , , [address] [place] [address], [facility] Follow up. Call for the next available appointment. Reason for referral: evaluation, treatment and pt needs referral to GI specialist and MRI of Liver mass. Summary of care provided to patient.(Electronically signed by VIOLA Potts 03/30/2020 21:19) Name Value Range Interpretation Code Description Data Zoila rce(s) Supporting Document(s) ID Date Data Source [id number] 03/30/2020 12:37:00 PM EST [facility] Name Value Range Interpretation Code Description Data Zoila rce(s) Supporting Document(s) COMPREHENSIVE METABOLIC PANEL [facility] COMPREHENSIVE METABOLIC PANEL Sodium [Moles/volume] in Serum or Plasma 136 mEq/L 134 - 153 [facility] Potassium [Moles/volume] in Serum or Plasma 4.3 mEq/L 3.6 - 5.0 [facility] Chloride [Moles/volume] in Serum or Plasma 100 mEq/L 98 - 107 [facility] Carbon dioxide, total [Moles/volume] in Serum or Plasma 26 MEQ/L 22 - 30 [facility] Glucose [Mass/volume] in Serum or Plasma 97 MG/DL 65 - 110 [facility] BUN 9 MG/DL 7 - 21 [facility] Creatinine [Mass/volume] in Serum or Plasma 0.5 MG/DL 0.7 - 1.5 L [facility] BUN/CREAT 18 8 - 27 [facility] Protein [Mass/volume] in Serum or Plasma 7.4 G/DL 6.3 - 8.2 [facility] Albumin [Mass/volume] in Serum or Plasma 4.2 G/DL 3.9 - 5.0 [facility] Globulin [Mass/volume] in Serum by calculation 3.2 GM/DL 2.4 - 3.2 [facility] A/G RATIO 1.3 0.8 - 2.0 [facility] al Calcium [Mass/volume] in Serum or Plasma 8.9 MG/DL 8.4 - 10.2 [facility] Bilirubin.total [Mass/volume] in Serum or Plasma <0.7 MG/DL 0.2 - 1.3 [facility] Alkaline phosphatase [Enzymatic activity/volume] in Serum or Plasma 78 U/L 38 - 126 [facility] Aspartate aminotransferase [Enzymatic activity/volume] in Serum or Plasma 27 U/L 5 - 40 [facility] Alanine aminotransferase [Enzymatic activity/volume] in Seru m or Plasma 36 U/L 7 - 56 [facility] Anion gap 3 in Serum or Plasma 10.0 mmol/L 8.0 - 16.0 [facility] AGE 34 yrs [facility] al NON-AA GFR >60 mL/min [facility] ital AFR AMER GFR >60 mL/min [facility] Male GFR In terprentation 20-49 yrs >60 mL/min Normal 50-59 yrs >56 mL/min Normal 60-69 yrs >49 mL/min Normal 70-79yrs >42 mL/min Normal 80 and above >35 mL/min Normal Female GFR Interpretation 20-39 yrs >60 mL/min Normal 40-49 yrs >58 mL/min Normal 50-59 yrs >51 mL/min Normal 60-69 yrs >45 mL/min Normal 70-79 yrs >39 mL/min Normal 80 and above >32 mL/min Normal ID Date Data Source [id number] 03/30/2020 12:30:00 PM EST [facility] Name Value Range Interpretation Code Description Data Zoila rce(s) Supporting Document(s) Lipase [Enzymatic activity/volume] in Serum or Plasma 16 U/L 13 - 60 [facility] ID Date Data Source [id number] 03/30/2020 12:22:00 PM EST [facility] Name Value Range Interpretation Code Description Data Zoila rce(s) Supporting Document(s) Prothrombin time (PT) 12.6 SECONDS 11.0 - 15.5 [facility] INR in Platelet poor plasma by Coagulation assay 0.90 0.93 - 1. 23 L [facility] aPTT in Blood by Coagulation assay 27.7 SECONDS 24.8 - 36.7 [facility] \\BLDo\\INR INTERPRETATION\\BLDx\\ Therapeutic range for Coumadin and related oral anticoagulants. - International Normalized Ratio (INR): 2.0 - 3.0 for Venous Thrombosis, Pulmonary Embolus, Tissue heart valves, Acute AR Atrial Fibrillation, Valvular heart disease and recurrent Systemic Embolism. - International Normalized Ratio (INR): 2.5 - 3.5 for Mechanical Prosthetic valve. ID Date Data Source [id number] 03/30/2020 12:22:00 PM [facility] Name Value Range Interpretation Code Description Data Zoila e(s) Supporting Document(s) CBC W/AUTOMATED DIFF [facility] COMPLETE BLOOD COUNT Leukocytes [#/volume] in Blood by Automated count 5.8 10^3/uL 4.2 - 1 1.0 [facility] Erythrocytes [#/volume] in Blood by Automated count 4.74 10^6/uL 4. 20 - 5.40 [facility] Hemoglobin [Mass/volume] in Blood 13.9 g/dL 12.0 - 16.0 [facility] Hematocrit [Volume Fraction] of Blood by Automated count 41.0 % 3 7.0 - 47.0 [facility] Erythrocyte mean corpuscular volume [Entitic volume] by Auto mated count 86.5 fL 81.0 - 101 [facility] Erythrocyte mean corpuscular hemoglobin [Entitic mass] by Automated count 29.3 pg 27.0 - 34.0 [facility] Erythrocyte mean corpuscular hemoglobin concentration [Mass/volume] by Automated count 33.9 g/dL 31.0 - 36.0 [facility] Erythrocyte distribution width [Ratio] by Automated count 12.2 % 11.5 - 14.5 [facility] Platelets [#/volume] in Blood by Automated count 359 10^3/uL 150 - 45 0 [facility] Platelet mean volume [Entitic volume] in Blood by Automated count 9.4 fL 7.4 - 10.4 [facility] Neutrophils/100 leukocytes in Blood by Automated count 53.6 % 37. 0 - 80.0 [facility] Lymphocytes/100 leukocytes in Blood by Manual count 36.1 % 25.0 - 40.0 [facility] Monocytes/100 leukocytes in Blood by Automated count 7.4 % 3.0 - 8.0 [facility] Eosinophils/100 leukocytes in Blood by Automated count 2.1 % 0.0 - 7.0 [facility] Basophils/100 leukocytes in Blood by Automated count 0.5 % 0.0 - 2.5 [facility] %IG 0.3 % 0.0 - 0.0 [facility] %NRBC 0.0 % 0.0 - 0.0 [facility] al Neutrophils [#/volume] in Blood by Automated count 3.13 10^3/uL 2.00 - 6.90 [facility] Lymphocytes [#/volume] in Blood by Automated count 2.11 10^3/uL 0.60 - 3.40 [facility] Monocytes [#/volume] in Blood by Automated count 0.43 10^3/uL 0.00 - 0.90 [facility] Eosinophils [#/volume] in Blood by Automated count 0.12 10^3/uL 0.00 - 0.70 [facility] Basophils [#/volume] in Blood by Automated count 0.03 10^3/uL 0.00 - 0.20 [facility] #IG 0.02 10^3/uL 0.00 - 0.10 [facility] ospital #NRBC 0.00 10^3/uL 0.00 - 0.00 [facility] MANUAL DIFF NOT INDICATED [facility] RBC MORPH NOT INDICATED [facility] spital ID Date Data Source [id number] 03/30/2020 12:11:00 PM EST [facility] Name Value Range Interpretation Code Description Data Zoila rce(s) Supporting Document(s) Lactate [Moles/volume] in Serum or Plasma 1.5 MMOL/L 0.2 - 2.2 [facility] ID Date Data Source [id number] 03/30/2020 12:00:00 PM EST [facility] Name Value Range Interpretation Code Description Data Zoila rce(s) Supporting Document(s) [facility]IS [facility] UR[facility]ALYSIS SOURCE R [facility] COLOR yellow NORMAL: Yellow [facility] CLARITY hazy NORMAL: Clear [facility] Specific gravity of Urine by Test strip 1.020 1.001 - 1.030 [facility] pH 5 5 - 9 [facility] al Glucose [Mass/volume] in Urine by Test strip NORM NORMAL: Negat [facility] Bilirubin.total [Presence] in Urine by Test strip NEG NORMAL: Negative [facility] Ketones [Presence] in Urine by Test strip NEG NORMAL: Negative [facility] Protein [Mass/volume] in Urine by Test strip 15 NORMAL: Negat [facility] Nitrite [Presence] in Urine by Test strip NEG NORMAL: Negative [facility] BLOOD 25 NORMAL: Negative [facility] Leukocyte esterase [Presence] in Urine by Test strip NEG VIRGILIO L: Negative [facility] Urobilinogen [Mass/volume] in Urine by Test strip NOR less edmund n 1.0 mg/dL [facility] MICROSCOPIC See Below [facility] ital WBC 1 - 3 NORMAL: NONE SEEN [facility] Erythrocytes [#/volume] in Urine by Test strip 1 - 3 NORMAL: NON E SEEN [facility] EPITHELIAL MODERATE NORMAL: NONE SEEN [facility] Bacteria [Presence] in Urine sediment by Light microscopy 1+ SMALL NORMAL: NONE SEEN [facility] Procedure Social History No Information
[2021-01-23] MEDS ORDERED: MUCI1TAB16 PO (16:23)
[2021-01-23] MEDS ORDERED: PSEUDOEPHEDRINE 30 MG TAB PO STA (19:18)
[2021-01-23] MEDS ORDERED: IBUPROFEN 600MG TAB PO ONE (19:20)
--- OUTSIDE RECORDS SUMMARY | 2021-01-23 19:25 | CCD ---
Author Author [facility] Organization [facility] Address Unknown Phone Unavailable Care Team Providers Care Concert Or Lecture Hall Manager Name Role Phone NON, PROVIDER STAFF Unavailable Unavailable Gonzalez, [place] Luana Unavailable Unavailable Gonzalez, [place] Luana Unavailable Unavailable Gonzalez, [place] Luana Unavailable Unavailable Gonzalez, [place] Luana Unavailable Unavailable Gonzalez, [place] Luana Unavailable Unavailable Gonzalez, [place] Luana Unavailable Unavailable Gonzalez, [place] Luana Unavailable Unavailable Gonzalez, [place] Luana Unavailable Unavailable Gonzalez, [place] Luana Unavailable Unavailable Gonzalez, [place] Luana Unavailable Unavailable Gonzalez, [place] Luana Unavailable Unavailable Gonzalez, [place] Luana Unavailable Unavailable Gonzalez, [place] Luana Unavailable Unavailable Kiarra WATSON MD Unavailable [...] is protected by Article 27-F of the [facility] Public Health law. If you continue you may have access to information: Regarding HIV / AIDS; Provided by facilities licensed or operated by the [facility] Office of Mental Health; or Provided by the [facility] Office for People With Developmental Disabilities. If such information is present, then the following [facility] mandated warning applies: This information has been [...] law may result in a fine or senior care sentence or both. A general authorization for the release of medical or other information is NOT sufficient authorization for further disc losure. Allergies and Adverse Reactions Type Description Substance Reaction Status Data Source(s ) Allergy to substance Allergy to substance Allergy to substance [place] ([facility]) Allergy to substance Allergy to substance Allergy to substance [place] ([facility]) Family History Family Member Name Family Member Gender Family Member Status Date o f Status Description Data Source(s) Unknown Male Problem [facility] ([facility]) Unknown Unknown Problem [facility] Encounters Encounter Providers Location Date Indications Data Source(s ) LELIA Layne: [address] [place] [address], Ph. Attender: Luana ORELLANA - [facility] Medical 09/04/2020 12:00:00 AM EDT [facility] ([facility]) CORRINE LayneC: [address] [place] [address], Ph. Attender: Luana Gonzalez [facility] Medical 08/14/2020 12:00:00 AM EDT [facility]) Luana Gonzalez, RESIDENCE COUNSELOR-C: [address] [place] [phone], Ph. Attender: Ulana Gonzalez [facility] Medical 08/14/2020 12:00:00 AM EDT [place] ([facility]) Emergency Attender: KARINA WATSON MDConsultant: STAF F NON 03/30/2020 11:05:00 AM EST - 03/30/2020 01:43:00 PM [facility] Patient discharged. Immunizations Vaccine Date Status Description Data Source(s) COVID-19, mRNA, LNP-S, PF, 30 mcg/0.3 mL dose 09/04/2020 05: 43:24 PM EDT completed .3 mL [place] ([facility]) COVID-19 VACCINE Pfizer 09/04/2020 12:00:00 AM EDT completed [place] Vaccine Series Complete: YESThis Data wa s Submitted to [facility] Via [employer]. COVID-19, mRNA, LNP-S, PF, 30 mcg/0.3 mL dose 08/14/2020 06: 40:35 PM EDT completed .3 mL [place] ([facility]) COVID-19, mRNA, LNP-S, PF, 30 mcg/0.3 mL dose 08/14/2020 06: 40:35 PM EDT completed .3 mL [place] ([facility]) COVID-19 VACCINE Pfizer 08/14/2020 12:00:00 AM EDT completed [facility] Vaccine Series Complete: NOThis Data was Submitted to [facility] Via [employer]. Medications No Information Insurance Providers Payer name Policy type / Coverage type Policy ID Covered libertarian ID Covered libertarian's relationship to phillips Policy [facility] Plan Information [facility] [id number] Self [id number] O UNAVAILABLE UNAVAILA BLE SELF PAY ONLY [id number] SP [id number] [id number] [facility] [id number] SP [id number] [facility] DIV [id number] SP [id number] [facility] [id number] Self [id number] [facility] [id number] Self [id number] [facility] [id number] Self [id number] [facility] [id number] [facility] DIV [id number] SP [id number] SELF PAY ONLY [id number] [facility] [id number] Self [id number] Problems, Conditions, and Diagnoses Code Display Name Description Problem Type Effective Dates Data Source(s) K7689 Other specified diseases of liver Other specifie d diseases of liver Diagnosis 03/30/2020 11:05:00 AM [facility] K5000 Crohn's disease of small intestine witho ut complications Crohn's disease of small intestine without complications Diagnosis 03/30/2020 11:05:00 AM [facility] R197 Diarrhea, unspecified Diarrhea, unspecified Diagnosis 03/30/2020 11:05:00 AM [facility] Surgeries/Procedures No Information Results ID Date Data Source [id number] 04/02/2020 09:20:00 AM [facility] [address] [place] [address] PHONE: [phone] FAX: [phone] Name .................. : RONALD Herrera Acct Number.................. : [id number] ROOM. ................. : TR-08 MR Number ................... : [id number] Stay type ............. : E/R Discharge Date......... ... : 03/30/20 Admit Date ....... .. : 03/30/20 [facility] .................... [facility] Date of ....... : 1985 Family Phys ................... : NON STAFF Phone .................. : [phone] Age ................................ : 34 Film# .................. .:[id number] Sex ................................. : F Unsigned transcriptions are preliminary reports and do not represent a medical or legal document CT ABD & PELVIS W/ IV ONLY [id number] COMPLETE:03/30/20 13:29 BEM 1761 Reason(s): Abdominal Pain [...] of administration: Intravenous Page 1 of 2 [facility] [address] [place] [address] PHONE: [phone] FAX: [phone] Name .................. : RONALD Herrera Acct Number.................. : [id number] ROOM. ................. : TR08 MR Number ................... : [id number] Stay type ............. : E/R Discharge Date......... ... : 03/30/20 Admit Date ......... : 03/30/20 Admit Phys .................... : [facility] Date of ....... : 1985 Family Phys ................... : NON STAFF Phone .................. : [phone] Age ................................ : 34 Film# .................. .:[id number] Sex ................................. : F Unsigned transcriptions are preliminary reports and do not represent a medical or legal document CT ABD & PELVIS W/ IV ONLY [id number] COMPLETE:03/30/20 13:29 BEM 1761 Reason(s): Abdominal Pain [...] rce(s) Supporting Document(s) ID Date Data Source [id number] 03/30/2020 11:05:00 AM EST [facility] 1 OrderSheet [facility] Emergency Department [address] [place] [address] Phone #: [phone]- [phone] 03/30/2020 10:45 Patient: ELMIRA CARDENAS Sex: F : 1985 Age: 34yWEIGHT:129.2 kg (S) HEIGHT:64 inches (S) BMI:48.9ALLERGIES: Demerol, Morphine and Related, PercocetCHIEF COMPLAINT: abdominal pain, diarrhea, crampsDIAGNOSIS: Colitis, ProblemLAB ORDERSOrder Description Priority Entered Acknowledged InitialedUrinalysis (Clean STAT 11:04 03/30/2020 11:04 Rehana Spencer) Delores Spencer R.N.; R.N. Verbal [facility]; [facility] 11:32 03/30/2020 11:43 [...] 11:03/30/2020 11:49 Gianna Lantigua R.N. 2 OrderSheet [facility] Emergency Department [address] [place] [address] Phone #: ext- [phone] 03/30/2020 10:45 Patient: ELMIRA CARDENAS Sex: F [...] 11:03/30/2020 11:44 Grzegorz,mL, then 150 mL/hr Thomas RDO; Reason for ordering with alerts: Clinical consideration [...] Shmuel Lantigua R.N. (13:43 03/30/2020)] 3 OrderSheet [facility] Emergency Department [address] [place] [address] Phone #: ext- [phone] 03/30/2020 10:45 Patient: ELMIRA CARDENAS Sex: F : 1985 Age: 34y Name Value Range Interpretation Code Description Data Zoila rce(s) Supporting Document(s) ID Date Data Source [id number] 03/30/2020 11:05:00 AM EST [facility] 1 Medication Reconciliation Report [facility] Emergency Department [address] [place] [address] Phone #: ext- [phone] 03/30/2020 10:45 [...] Dispense 40 capsule.Refills: 0. Substitution permitted.Pharmacy - [facility] [phone] [facility] [address] ; [place] [address]. .Medrol (Jose) 4 mg tablets in a dose pack Take 1 tablet as directed for 6 days -- Dispense 1 pack.Refills: 0. Substitution permitted.Pharmacy - [facility] [phone] [facility] [address] ; [place] [address]. . -- VIOLA Potts Name Value Range Interpretation Code Description Data Zoila rce(s) Supporting Document(s) ID Date Data Source [id number] 03/30/2020 11:05:00 AM EST [facility] 1 Medication Administration Record [facility] Emergency Department [address] [place] [address] Phone #: ext- [phone] 03/30/2020 10:45 Patient: ELMIRA CARDENAS Sex: F : 1985 Age: 34yWeight: 129.2 kgHeight/Length: 64 inBMI: 48.9ALLERGIES: Percocet, Demerol, Morphine and Related Date/Time Medication Administered Medication OrderedStart IV NS IV NS : Bolus 1000 mL, then 60096:44 03/30/2020 Dose: IV Fluids mL/hrShmuel Lantigua R.N. Rate: 750 mL/hr over 1 hour(s)---- Dispensed: 1000 mL bagStop Site: #1 right qkveein24:42 03/30/2020Shmuel Lantigua R.N.Start ofirmev * Ofirmev IV [...] rce(s) Supporting Document(s) ID Date Data Source [id number] 03/30/2020 11:05:00 AM EST [facility] 1 General Instructions [facility] Emergency Department [address] [place] [address] Phone #: ext- [phone] 03/30/2020 10:45 Patient: [...] Dispense 40 capsule.Refills: 0. Substitution permitted.Pharmacy - [facility] [phone] [facility] [address] ; [place] [address]. FaxNumber: .Medrol (Jose) 4 mg tablets in a dose pack Take 1 tablet as directed for 6 days -- Dispense 1 pack.Refills: 0. Substitution permitted.Pharmacy - [facility] [phone] [facility] [address] ; [place] [address]. .Understanding of the discharge instructions verbalized by patient.Follow-up with: [facility], , , [address] [facility], [place], [address] Follow up. Call for the next available [...] colitis. The goal of 2 General Instructions [facility] Emergency Department [address] [place] [address] Phone #: ext- [phone] 03/30/2020 10:45 [id number] Sex: F : 1985 Age: 34ytreatment is [...] cabbage, broccoli, and cauliflower. 3 General Instructions [facility] Emergency Department [address] [place] [address] Phone #: ext- [phone] 03/30/2020 10:45 Patient: ELMIRA CARDENAS Sex: F [...] andpreferably before you conceive. 4 General Instructions [facility] Emergency Department [address] [place] [address] Phone #: [phone]- [phone] 03/30/2020 10:45 Patient: ELMIRA CARDENAS Sex: F [...] does not get better, or repeated vomiting [id number] [employer]. [address] [place] [address], [place] [address]. All rights reserved. This information is not intended as asubstitute for professional medical care. Always follow your healthcare professional's instructions. You have been given the following additional information: Ulcerative Colitis(Electronically signed by VIOLA Potts 03/30/2020 21:19) Name Value Range Interpretation Code Description Data Zoila rce(s) Supporting Document(s) ID Date Data Source [id number] 03/30/2020 11:05:00 AM EST [facility] 1 Clinical Report - Nurses [facility] Emergency Department [address] [place] [address] Phone #: ext- [phone] 03/30/2020 10:45 Patient: [...] inthe lower abdomen and associated with diarrhea.Treatment TUBE SKIVER:None.SEPSIS SCREEN: SIRS SCREEN NEGATIVE. SEPSIS SCREEN NEGATIVE. [...] Spencer R.N. 2 Clinical Report - Nurses [facility] Emergency Department [address] [place] [address] Phone #: ext- [phone] 03/30/2020 10:45 Patient: [...] Lantigua R.N. 3 Clinical Report - Nurses [facility] Emergency Department [address] [place] [address] Phone #: ext- [phone] 03/30/2020 10:45 Patient: ELMIRA CARDENAS Sex: F [...] with the patient. Written instructions provided in French. The patient was discharged by the physician recycling assistant. She was discharged home. She left [...] rce(s) Supporting Document(s) ID Date Data Source [id number] 03/30/2020 11:05:00 AM EST [facility] 1 Clinical Report - Physicians/Mid Levels [facility] Emergency Department [address] [place] [address] Phone #: ext- [phone] 03/30/2020 10:45 Patient: [...] use. 2 Clinical Report - Physicians/Mid Levels [facility] Emergency Department [address] [place] [address] Phone #: ext- [phone] 03/30/2020 10:45 Patient: ELMIRA CARDENAS [facility]#: [id number] Sex: F : 1985 Age: 34yPHYSICAL EXAMVital [...] 0.20) 3 Clinical Report - Physicians/Mid Levels [facility] Emergency Department [address] [place] [address] Phone #: ext- [phone] 03/30/2020 10:45 Patient: [...] Male GFR Interprentation 20-49 yrs >60 mL/min Ewfmqd70-72 yrs >56 mL/min Normal 60-69 yrs >49 mL/min Normal 70-79yrs>42 mL/min Normal 80 and above >35 mL/min Normal Female GFRInterpretation 20-39 yrs >60 mL/min Normal 40-49 yrs >58 mL/minNormal 50-59 yrs >51 mL/min Normal 60-69 yrs >45 mL/min Wugnnw69-44 yrs >39 mL/min Normal 80 and above >32 mL/min NormalLactic Acid: (VIGNESH: 03/30/2020 11:38) ( MsgRcvd 03/30/2020 12:11) Final results Test Result Flag Units (Reference) LACTIC ACID 1.5 MMOL/L (0.2 - 2.2)Lipase: (VIGNESH: 03/30/2020 11:38) ( LagRcvd 03/30/2020 12:30) Final results Test Result Flag [...] VenousThrombosis, Pulmonary Embolus, Tissue heart valves, Acute IA Atrial Fibrillation, Valvular heart diseaseand recurrent Systemic Embolism. -International Normalized Ratio (INR): 2.5 - 3.5 forMechanical Prosthetic valve. 4 Clinical Report - Physicians/[facility] Emergency Department [address] [place] [address] Phone #: ext- [phone] 03/30/2020 10:45 Patient: ELMIRA CARDENAS Sex: F : 1985 Age: 34y Urinalysis: (VIGNESH: 03/30/2020 11:32) ( [facility] 11[facility]51[facility] Canceled SOURCE: Clean Catch Urinalysis: (VIGNESH: 03/30/2020 10:05) ( [facility] 03/30/2020 12:00) Final results Test Result Flag [...] provider. 5 Clinical Report - Physicians/Mid Levels [facility] Emergency Department [address] [place] [address] Phone #: ext- [phone] 03/30/2020 10:45 [id number] Sex[facility] F : 1985 Age: 34y Your Current Medications: . No home medication. Prescription Medications: dicyclomine 10 mg capsule Take 1 capsule four times a day for 10 days -- Dispense 40 capsule. Refills: 0. Substitution permitted. Pharmacy - [facility] [address] [facility] [facility] [address] ; [place] [address]. . Medrol (Jose) 4 mg tablets in a dose pack Take 1 tablet as directed for 6 days -- Dispense 1 pack. Refills: 0. Substitution permitted. Pharmacy - [facility] [phone] [facility] [address] ; [place] [address]. . Understanding of the discharge instructions verbalized by patient. Follow-up with: [facility], , , [address] [place] [address], [facility] Follow up. Call for the next available appointment. Reason for referral: evaluation, treatment and pt needs referral to GI specialist and MRI of Liver mass. Summary of care provided to patient.(Electronically signed by VIOLA Potts 03/30/2020 21:19) Name Value Range Interpretation Code Description Data Zoila rce(s) Supporting Document(s) ID Date Data Source [id number] 03/30/2020 12:37:00 PM EST [facility] Name Value Range Interpretation Code Description Data Zoila rce(s) Supporting Document(s) COMPREHENSIVE METABOLIC PANEL [facility] COMPREHENSIVE METABOLIC PANEL Sodium [Moles/volume] in Serum or Plasma 136 mEq/L 134 - 153 [facility] Potassium [Moles/volume] in Serum or Plasma 4.3 mEq/L 3.6 - 5.0 [facility] Chloride [Moles/volume] in Serum or Plasma 100 mEq/L 98 - 107 [facility] Carbon dioxide, total [Moles/volume] in Serum or Plasma 26 MEQ/L 22 - 30 [facility] Glucose [Mass/volume] in Serum or Plasma 97 MG/DL 65 - 110 [facility] BUN 9 MG/DL 7 - [facility] Creat[facility] [Mass/volume] in Serum or Plasma 0.5 MG/DL 0.7 - 1.5 L [facility] BUN/CREAT 18 8 - 27 [facility] Protein [Mass/volume] in Serum or Plasma 7.4 G/DL 6.3 - 8.2 [facility] Albumin [Mass/volume] in Serum or Plasma 4.2 G/DL 3.9 - 5.0 [facility] Globulin [Mass/volume] in Serum by calculation 3.2 GM/DL 2.4 - 3.2 [facility] A/G RATIO 1.3 0.8 - 2.0 [facility] al Calcium [Mass/volume] in Serum or Plasma 8.9 MG/DL 8.4 - 10.2 [facility] Bilirubin.total [Mass/volume] in Serum or Plasma <0.7 MG/DL 0.2 - 1.3 [facility] Alkaline phosphatase [Enzymatic activity/volume] in Serum or Plasma 78 U/L 38 - 126 [facility] Aspartate aminotransferase [Enzymatic activity/volume] in Serum or Plasma 27 U/L 5 - 40 [facility] Alanine aminotransferase [Enzymatic activity/volume] in Seru m or Plasma 36 U/L 7 - 56 [facility] Anion gap 3 in Serum or Plasma 10.0 mmol/L 8.0 - 16.0 [facility] AGE 34 yrs [facility] al NON-AA GFR >60 mL/min [facility] ital AFR AMER GFR >60 mL/min [facility] Ho spital Male GFR In terprentation [...] >32 mL/min Normal ID Date Data Source [id number] 03/30/2020 12:30:00 PM EST [facility] Name Value Range Interpretation Code Description Data Zoila rce(s) Supporting Document(s) Lipase [Enzymatic activity/volume] in Serum or Plasma 16 U/L 13 - 60 [facility] ID Date Data Source [id number] 03/30/2020 12:22:00 PM EST [facility] Name Value Range Interpretation Code Description Data Zoila rce(s) Supporting Document(s) Prothrombin time (PT) 12.6 SECONDS 11.0 - 15.5 [facility] INR in Platelet poor plasma by Coagulation assay 0.90 0.93 - 1. 23 L [facility] aPTT in Blood by Coagulation assay 27.7 SECONDS 24.8 - 36.7 [facility] \\BLDo\\INR INTERPRETATION\\BLDx\\ Therapeutic range for Coumadin and related oral anticoagulants. - International Normalized Ratio (INR): 2.0 - 3.0 for Venous Thrombosis, Pulmonary Embolus, Tissue heart valves, Acute IA Atrial Fibrillation, Valvular heart disease and recurrent Systemic Embolism. - International Normalized Ratio (INR): 2.5 - 3.5 for Mechanical Prosthetic valve. ID Date Data Source [id number] 03/30/2020 12:22:00 PM [facility] Name Value Range Interpretation Code Description Data Zoila e(s) Supporting Document(s) CBC W/AUTOMATED DIFF [facility] COMPLETE BLOOD COUNT Leukocytes [#/volume] in Blood by Automated count 5.8 10^3/uL 4.2 - 1 1.0 [facility] Erythrocytes [#/volume] in Blood by Automated count 4.74 10^6/uL 4. 20 - 5.40 [facility] Hemoglobin [Mass/volume] in Blood 13.9 g/dL 12.0 - 16.0 [facility] Hematocrit [Volume Fraction] of Blood by Automated count 41.0 % 3 7.0 - 47.0 [facility] Erythrocyte mean corpuscular volume [Entitic volume] by Auto mated count 86.5 fL 81.0 - 101 [facility] Erythrocyte mean corpuscular hemoglobin [Entitic mass] by Automated count 29.3 pg 27.0 - 34.0 [facility] Erythrocyte mean corpuscular hemoglobin concentration [Mass/volume] by Automated count 33.9 g/dL 31.0 - 36.0 [facility] Erythrocyte distribution width [Ratio] by Automated count 12.2 % 11.5 - 14.5 [facility] Platelets [#/volume] in Blood by Automated count 359 10^3/uL 150 - 45 0 [facility] Platelet mean volume [Entitic volume] in Blood by Automated count 9.4 fL 7.4 - 10.4 [facility] Neutrophils/100 leukocytes in Blood by Automated count 53.6 % 37. 0 - 80.0 [facility] Lymphocytes/100 leukocytes in Blood by Manual count 36.1 % 25.0 - 40.0 [facility] Monocytes/100 leukocytes in Blood by Automated count 7.4 % 3.0 - 8.0 [facility] Eosinophils/100 leukocytes in Blood by Automated count 2.1 % 0.0 - 7.0 [facility] Basophils/100 leukocytes in Blood by Automated count 0.5 % 0.0 - 2.5 [facility] %IG 0.3 % 0.0 - 0.0 H [facility] al %NRBC 0.0 % 0.0 - 0.0 [facility] al Neutrophils [#/volume] in Blood by Automated count 3.13 10^3/uL 2.00 - 6.90 [facility] Lymphocytes [#/volume] in Blood by Automated count 2.11 10^3/uL 0.60 - 3.40 [facility] Monocytes [#/volume] in Blood by Automated count 0.43 10^3/uL 0.00 - 0.90 [facility] Eosinophils [#/volume] in Blood by Automated count 0.12 10^3/uL 0.00 - 0.70 [facility] Basophils [#/volume] in Blood by Automated count 0.03 10^3/uL 0.00 - 0.20 [facility] #IG 0.02 10^3/uL 0.00 - 0.10 [facility] ospital #NRBC 0.00 10^3/uL 0.00 - 0.00 [facility] H ospital MANUAL DIFF NOT INDICATED [facility] RBC MORPH NOT INDICATED [facility] spital ID Date Data Source [id number] 03/30/2020 12:11:00 PM EST [facility] Name Value Range Interpretation Code Description Data Zoila rce(s) Supporting Document(s) Lactate [Moles/volume] in Serum or Plasma 1.5 MMOL/L 0.2 - 2.2 [facility] ID Date Data Source [id number] 03/30/2020 12:00:00 PM EST [facility] Name Value Range Interpretation Code Description Data Zoila rce(s) Supporting Document(s) [facility] COLOR yellow NORMAL: Yellow [facility]spital CLARITY hazy NORMAL: Clear [facility] spital Specific gravity of Urine by Test strip 1.020 1.001 - 1.030 [facility] pH 5 5 - 9 [facility] al Glucose [Mass/volume] in Urine by Test strip NORM NORMAL: Negat [facility] Bilirubin.total [Presence] in Urine by Test strip NEG NORMAL: Negative [facility] Ketones [Presence] in Urine by Test strip NEG NORMAL: Negative [facility] Protein [Mass/volume] in Urine by Test strip 15 NORMAL: Negat [facility] Nitrite [Presence] in Urine by Test strip NEG NORMAL: Negative [facility] BLOOD 25 NORMAL: Negative [facility] Leukocyte esterase [Presence] in Urine by Test strip NEG VIRGILIO L: Negative [facility] Urobilinogen [Mass/volume] in Urine by Test strip NOR less edmund n 1.0 mg/dL [facility] MICROSCOPIC See Below [facility] ital WBC 1 - 3 NORMAL: NONE SEEN [facility] Erythrocytes [#/volume] in Urine by Test strip 1 - 3 NORMAL: NON E SEEN [facility] EPITHELIAL MODERATE NORMAL: NONE SEEN [facility] Bacteria [Presence] in Urine sediment by Light microscopy 1+ SMALL NORMAL: NONE SEEN [facility] Procedure Social History No Information
[2021-01-23 20:54] VITALS: BP 122/81
== END 2021-01-23 20:58 | disposition home or self-care (01) ==
LOC: M ED 16:14
DX: B34.8 Other viral infections of unspecified site (principal); R05.9 Cough, unspecified; R09.81 Nasal congestion

== ENCOUNTER 2021-05-13 13:51 | Emergency (ER) | payer OTHER ==
[~2021-05-13] VITALS: Ht 162.6 cm; Wt 135.1 kg
[2021-05-13 13:51] VITALS: BP 139/84
[~2021-05-13 13:51] MED LIST changes: +MUCI1TAB16 PO
[2021-05-13] MEDS ORDERED: ACET-683 PO (14:27)
[2021-05-13] MEDS ORDERED: IBUP200C25 PO (14:27)
[2021-05-13] MEDS ORDERED: NS 1,000 ML IV ONE (16:45)
[2021-05-13] MEDS ORDERED: ONDANSETRON 4MG/2ML VIAL IV ONE (16:45)
[2021-05-13 17:30] LABS: BASO % 0.5 % (0.0-1.0); EOS % 0.2 % (0.0-3.0); HEMATOCRIT 46.5 % (36.0-47.0); HEMOGLOBIN 15.6 g/dl (12.0-15.5); LYMPH # 1.5 10^3/uL (1.5-5.0); LYMPH % 38.1 % (24.0-44.0); MEAN CORPUSCULAR HEMOGLOBIN 29.4 pg (27.0-33.0); MEAN CORPUSCULAR HGB CONC 33.5 g/dl (32.0-36.5); MEAN CORPUSCULAR VOLUME 87.7 fl (80.0-96.0); MONO # 0.5 10^3/uL (0.0-0.8); MONO % 12.9 % (2.0-8.0); NEUTROPHILS % 48.3 % (36.0-66.0); PLATELET COUNT, AUTOMATED 364 10^3/uL (150-450)
[2021-05-13 17:55] LABS: BLOOD UREA NITROGEN 10 MG/DL (7-18); CALCIUM LEVEL 9.3 MG/DL (8.5-10.1); CARBON DIOXIDE LEVEL 25 MEQ/L (21-32); CHLORIDE LEVEL 104 MEQ/L (98-107); GLOMERULAR FILTRATION RATE > 60.0 (>60); GLUCOSE, FASTING 87 MG/DL (70-100); POTASSIUM SERUM 4.1 MEQ/L (3.5-5.1); SODIUM LEVEL 137 MEQ/L (136-145)
[2021-05-13] MEDS ORDERED: NIRM1TAB PO (19:44)
== END 2021-05-13 19:55 | disposition home or self-care (01) ==
LOC: M ED 13:51
DX: U07.1 COVID-19 (principal); M06.9 Rheumatoid arthritis, unspecified; K50.90 Crohn's disease, unspecified, without complications; Z79.899 Other long term (current) drug therapy
CPT/HCPCS: 71045; 80048; 85025; 87804; 93005; 96361; 96374; 99284; J2405

== ENCOUNTER → 2021-09-16 | Outpatient (CLI) | payer OTHER ==
[~2021-09-16] MED LIST changes: +ACET-683 PO; +GASTROGRAFIN SOLUTION 30ML (Q9963) As Ordered ONE; +IBUP200C25 PO; +ISOVUE-370 76% 100ML VIAL As Ordered ONE; +NIRM1TAB PO
== END ==
LOC: M RAD 09:30
PROVIDERS: ATTEND Nurse Practitioner Family
DX: R16.0 Hepatomegaly, not elsewhere classified (principal)
CPT/HCPCS: 74177; Q9963; Q9967

== ENCOUNTER → 2021-12-25 | Outpatient (CLI) | payer OTHER ==
[~2021-12-25] MED LIST changes: -GASTROGRAFIN SOLUTION 30ML (Q9963) As Ordered ONE; -ISOVUE-370 76% 100ML VIAL As Ordered ONE
== END ==
LOC: M WHC 12:18
PROVIDERS: ATTEND Pediatrics
DX: K50.90 Crohn's disease, unspecified, without complications (principal)

== ENCOUNTER → 2021-12-31 | Outpatient (REF) | payer OTHER ==
[2021-12-31 18:03] LABS: HEMATOCRIT 43.6 % (36.0-47.0); HEMOGLOBIN 14.6 g/dl (12.0-15.5); MEAN CORPUSCULAR HEMOGLOBIN 30.5 pg (27.0-33.0); MEAN CORPUSCULAR HGB CONC 33.5 g/dl (32.0-36.5); PLATELET COUNT, AUTOMATED 384 10^3/uL (150-450); RED BLOOD COUNT 4.79 10^6/uL (4.00-5.40); WHITE BLOOD COUNT 7.9 10^3/uL (4.0-10.0)
[2021-12-31 18:08] LABS: PERCENT SATURATION 22.5 % (13.2-45.0)
[2021-12-31 18:41] LABS: ERYTHROCYTE SEDIMENTATION RATE 33 mm/hr (0-20)
== END ==
LOC: M LAB REF 16:58
PROVIDERS: ATTEND Pediatrics
DX: K50.90 Crohn's disease, unspecified, without complications (principal)

== ENCOUNTER 2022-02-05 09:10 | Emergency (ER) | payer OTHER ==
[~2022-02-05] VITALS: Ht 162.6 cm; Wt 128.7 kg
[2022-02-05 09:49] LABS: BASO % 0.5 % (0.0-1.0); EOS # 0.1 10^3/uL (0.0-0.5); HEMATOCRIT 42.1 % (36.0-47.0); HEMOGLOBIN 14.1 g/dl (12.0-15.5); LYMPH # 2.5 10^3/uL (1.5-5.0); LYMPH % 40.7 % (24.0-44.0); MEAN CORPUSCULAR HGB CONC 33.5 g/dl (32.0-36.5); MEAN CORPUSCULAR VOLUME 89.6 fl (80.0-96.0); MONO # 0.4 10^3/uL (0.0-0.8); MONO % 6.7 % (2.0-8.0); NEUTROPHILS # 3.1 10^3/uL (1.5-8.5); NEUTROPHILS % 49.9 % (36.0-66.0); PLATELET COUNT, AUTOMATED 428 10^3/uL (150-450); WHITE BLOOD COUNT 6.1 10^3/uL (4.0-10.0)
[2022-02-05 10:18] LABS: ALBUMIN 3.8 G/DL (3.2-5.2); ALT/SGPT 28 U/L (7.0-40); BILIRUBIN,DIRECT 0.1 MG/DL (<0.4); BILIRUBIN,TOTAL 0.4 MG/DL (0.3-1.2); BLOOD UREA NITROGEN 14 MG/DL (9-23); CALCIUM LEVEL 9.3 MG/DL (8.5-10.1); CARBON DIOXIDE LEVEL 27 MMOL/L (20-31); CHLORIDE LEVEL 102 MMOL/L (98-107); CK-MB VALUE MASS < 1.0 NG/ML (<3.6); CPK CREATINE PHOSPHOKINASE 71 U/L (34-145); CREATININE FOR GFR 0.63 MG/DL (0.55-1.30); FREE T4 1.11 NG/DL (0.89-1.76); GLOMERULAR FILTRATION RATE > 60.0 (>60); GLUCOSE, FASTING 91 MG/DL (60-100); LIPASE 35 U/L (12-53); POTASSIUM SERUM 4.3 MMOL/L (3.5-5.1); SODIUM LEVEL 139 MMOL/L (136-145); THYROID STIMULATING HORMONE 0.717 uIU/ML (0.55-4.78); TOTAL PROTEIN 7.6 G/DL (5.7-8.2)
[2022-02-05 10:53] LABS: HCG, SERUM QUALITATIVE NEGATIVE (NEGATIVE)
[2022-02-05 11:38] LABS: CK-MB VALUE MASS < 1.0 NG/ML (<3.6); CPK CREATINE PHOSPHOKINASE 58 U/L (34-145); MB/CK RELATIVE INDEX 1.72 (< OR =4)
[2022-02-05] MEDS ORDERED: NS 2,000 ML in IV 1 EA IV ONE (11:40)
[2022-02-05] MEDS ORDERED: ISOVUE-370 76% 100ML VIAL As Ordered ONE (13:01)
[2022-02-05] MEDS ORDERED: ACETAMINOPHEN TAB 650MG DOSE (2X325MG) PO ONE (13:10)
[2022-02-05 16:15] VITALS: BP 114/68
== END 2022-02-05 17:07 | disposition home or self-care (01) ==
LOC: M ED 09:10
DX: I95.1 Orthostatic hypotension (principal); R19.7 Diarrhea, unspecified; I10 Essential (primary) hypertension; K58.9 Irritable bowel syndrome, unspecified; F41.9 Anxiety disorder, unspecified; Z79.899 Other long term (current) drug therapy

== ENCOUNTER → 2022-02-22 | Outpatient (CLI) | payer OTHER ==
[2022-02-22 12:50] LABS: ALBUMIN 3.7 G/DL (3.2-5.2); ALKALINE PHOSPHATASE 89 U/L (46-116); ALT/SGPT 34 U/L (7.0-40); AST/SGOT 28 U/L (<34); BILIRUBIN,TOTAL 0.4 MG/DL (0.3-1.2); BLOOD UREA NITROGEN 11 MG/DL (9-23); CALCIUM LEVEL 9.2 MG/DL (8.5-10.1); CARBON DIOXIDE LEVEL 27 MMOL/L (20-31); CHLORIDE LEVEL 103 MMOL/L (98-107); CREATININE FOR GFR 0.65 MG/DL (0.55-1.30); GLOMERULAR FILTRATION RATE > 60.0 (>60); GLUCOSE, FASTING 89 MG/DL (60-100); POTASSIUM SERUM 4.1 MMOL/L (3.5-5.1); SODIUM LEVEL 139 MMOL/L (136-145); TOTAL PROTEIN 7.5 G/DL (5.7-8.2)
[2022-02-22 12:51] LABS: VITAMIN B12 LEVEL 323 PG/ML (211-911)
[2022-02-22 13:02] LABS: HEPATITIS B SURFACE ANTIGEN NEGATIVE (NEGATIVE)
[2022-02-22 13:23] LABS: HEPATITIS C VIRUS ABY INDEX 0.1 INDEX (<0.8)
[2022-02-25 13:10] LABS: HEPATITIS A IgG TOTAL Negative (Negative); RUBEOLA IgG ANTIBODY 49.6 AU/mL (Immune >16.4)
[2022-03-12 07:01] LABS: TPMTGEN1 SEE SEPARATE REPORT
== END ==
LOC: M LAB 11:26
PROVIDERS: ATTEND Physician Assistant Medical
DX: K50.911 Crohn's disease, unspecified, with rectal bleeding (principal)

== ENCOUNTER → 2022-02-23 | Outpatient (REF) | payer OTHER | LOC: M LAB REF 09:30 | PROVIDERS: ATTEND Physician Assistant Medical | DX: K50.911 Crohn's disease, unspecified, with rectal bleeding (principal) ==

== ENCOUNTER 2022-04-01 20:25 | Emergency (ER) | payer OTHER ==
[~2022-04-01] VITALS: Ht 162.6 cm; Wt 130.1 kg
[2022-04-01 20:27] VITALS: BP 131/87
[2022-04-01 21:26] LABS: BASO % 0.5 % (0.0-1.0); EOS # 0.1 10^3/uL (0.0-0.5); EOS % 2.1 % (0.0-3.0); HEMATOCRIT 42.3 % (36.0-47.0); HEMOGLOBIN 13.9 g/dl (12.0-15.5); LYMPH # 1.5 10^3/uL (1.5-5.0); LYMPH % 23.1 % (24.0-44.0); MEAN CORPUSCULAR HGB CONC 32.9 g/dl (32.0-36.5); MEAN CORPUSCULAR VOLUME 88.1 fl (80.0-96.0); MONO # 0.6 10^3/uL (0.0-0.8); MONO % 8.3 % (2.0-8.0); NEUTROPHILS # 4.4 10^3/uL (1.5-8.5); NEUTROPHILS % 65.7 % (36.0-66.0); PLATELET COUNT, AUTOMATED 429 10^3/uL (150-450); WHITE BLOOD COUNT 6.6 10^3/uL (4.0-10.0)
[2022-04-01 21:48] LABS: LIPASE 26 U/L (12-53)
[2022-04-01 21:50] LABS: BILIRUBIN,DIRECT 0.1 MG/DL (<0.4)
[2022-04-01 21:54] LABS: ALBUMIN 3.6 G/DL (3.2-5.2); ALKALINE PHOSPHATASE 91 U/L (46-116); ALT/SGPT 27 U/L (7.0-40); AST/SGOT 16 U/L (<34); BILIRUBIN,TOTAL 0.4 MG/DL (0.3-1.2); TOTAL PROTEIN 7.2 G/DL (5.7-8.2)
[2022-04-01 22:00] LABS: HCG, SERUM QUALITATIVE NEGATIVE (NEGATIVE)
== END 2022-04-02 04:10 | disposition left against medical advice (07) ==
LOC: M ED 20:25
DX: Z53.21 Procedure and treatment not carried out due to patient leaving prior to being seen by health care provider (principal)

== ENCOUNTER → 2022-06-10 | Outpatient (REF) | payer OTHER ==
[2022-06-10 18:09] LABS: CPK CREATINE PHOSPHOKINASE 71 U/L (34-145)
[2022-06-10 18:10] LABS: BLOOD UREA NITROGEN 13 MG/DL (9-23); CALCIUM LEVEL 9.6 MG/DL (8.5-10.1); CARBON DIOXIDE LEVEL 26 MMOL/L (20-31); CHLORIDE LEVEL 102 MMOL/L (98-107); CREATININE FOR GFR 0.61 MG/DL (0.55-1.30); GLOMERULAR FILTRATION RATE > 60.0 (>60); GLUCOSE, FASTING 103 MG/DL (60-100); MAGNESIUM LEVEL 1.6 MG/DL (1.8-2.4); PHOSPHORUS LEVEL 4.9 MG/DL (2.5-4.9); POTASSIUM SERUM 4.1 MMOL/L (3.5-5.1); PTH INTACT 46.9 PG/ML (18.5-88.0); SODIUM LEVEL 137 MMOL/L (136-145)
[2022-06-10 18:11] LABS: VITAMIN B12 LEVEL 499 PG/ML (211-911)
== END ==
LOC: M SFHCRHEU 15:04
PROVIDERS: ATTEND Internal Medicine
DX: M25.50 Pain in unspecified joint (principal); M79.10 Myalgia, unspecified site; M11.80 Other specified crystal arthropathies, unspecified site

== ENCOUNTER → 2022-06-12 | Outpatient (CLI) | payer OTHER | LOC: M RAD 15:59 | PROVIDERS: ATTEND Internal Medicine | DX: M25.50 Pain in unspecified joint (principal) ==

== ENCOUNTER → 2022-07-22 | Outpatient (CLI) | payer OTHER | LOC: M SLEEP HO 11:16 | PROVIDERS: ATTEND Internal Medicine | DX: R53.82 Chronic fatigue, unspecified (principal) ==

== ENCOUNTER 2022-08-14 22:08 | Emergency (ER) | payer OTHER ==
[~2022-08-14] VITALS: Ht 157.5 cm; Wt 139.3 kg
[2022-08-14 22:08] VITALS: BP 126/85
== END 2022-08-15 02:52 | disposition home or self-care (01) ==
LOC: M ED 22:08
DX: I82.812 Embolism and thrombosis of superficial veins of left lower extremity (principal); K58.9 Irritable bowel syndrome, unspecified; Z79.1 Long term (current) use of non-steroidal anti-inflammatories (NSAID); Z79.899 Other long term (current) drug therapy

== ENCOUNTER → 2022-09-18 | Outpatient (CLI) | payer OTHER | LOC: M RAD 16:07 | PROVIDERS: ATTEND Internal Medicine | DX: M54.16 Radiculopathy, lumbar region (principal) ==

== ENCOUNTER 2022-12-05 12:39 | Emergency (ER) | payer OTHER ==
[~2022-12-05] VITALS: Ht 162.6 cm; Wt 135.0 kg
[2022-12-05 12:39] VITALS: TEMP 97.4
[2022-12-05] MEDS ORDERED: SAXE1INJ SC (12:52)
[2022-12-05] MEDS ORDERED: DULO1CAP6 PO (12:52)
[2022-12-05 16:04] VITALS: BP 141/85; O2SAT 98
== END 2022-12-05 16:06 | disposition home or self-care (01) ==
LOC: M ED 12:39
DX: S43.401A Unspecified sprain of right shoulder joint, initial encounter (principal); K58.9 Irritable bowel syndrome, unspecified; F41.9 Anxiety disorder, unspecified; Y99.0 Civilian activity done for income or pay; Z79.899 Other long term (current) drug therapy; Z79.1 Long term (current) use of non-steroidal anti-inflammatories (NSAID)

== ENCOUNTER → 2022-12-09 | Outpatient (REF) | payer OTHER ==
[~2022-12-09] MED LIST changes: +DULO1CAP6 PO; +SAXE1INJ SC
== END ==
LOC: M LAB REF 11:37
PROVIDERS: ATTEND Nurse Practitioner Family
DX: J02.9 Acute pharyngitis, unspecified (principal)

== ENCOUNTER → 2023-03-27 | Outpatient (REF) | payer OTHER ==
[2023-03-27 19:34] LABS: URIC ACID 6.3 MG/DL (3.1-7.8)
[2023-03-27 19:37] LABS: ALBUMIN 3.8 G/DL (3.2-5.2); ALKALINE PHOSPHATASE 95 U/L (46-116); ALT/SGPT 47 U/L (7.0-40); AST/SGOT 28 U/L (<34); BILIRUBIN,TOTAL 0.3 MG/DL (0.3-1.2); BLOOD UREA NITROGEN 12 MG/DL (9-23); CALCIUM LEVEL 9.6 MG/DL (8.5-10.1); CARBON DIOXIDE LEVEL 31 MMOL/L (20-31); CHLORIDE LEVEL 102 MMOL/L (98-107); GLOMERULAR FILTRATION RATE > 60.0 (>60); GLUCOSE, FASTING 90 MG/DL (60-100); POTASSIUM SERUM 4.3 MMOL/L (3.5-5.1); RHEUMATOID FACTOR QUANT < 3.5 IU/ML (<14); SODIUM LEVEL 136 MMOL/L (136-145); TOTAL PROTEIN 7.7 G/DL (5.7-8.2)
[2023-03-27 19:38] LABS: BASO % 0.6 % (0.0-1.0); EOS # 0.1 10^3/uL (0.0-0.5); EOS % 2.4 % (0.0-3.0); HEMATOCRIT 44.3 % (36.0-47.0); HEMOGLOBIN 14.6 g/dl (12.0-15.5); LYMPH # 2.1 10^3/uL (1.5-5.0); LYMPH % 41.5 % (24.0-44.0); MEAN CORPUSCULAR HEMOGLOBIN 29.6 pg (27.0-33.0); MEAN CORPUSCULAR VOLUME 89.7 fl (80.0-96.0); MONO # 0.4 10^3/uL (0.0-0.8); NEUTROPHILS # 2.4 10^3/uL (1.5-8.5); NEUTROPHILS % 47.1 % (36.0-66.0); PLATELET COUNT, AUTOMATED 486 10^3/uL (150-450); RED BLOOD COUNT 4.94 10^6/uL (4.00-5.40)
[2023-03-27 19:44] LABS: ERYTHROCYTE SEDIMENTATION RATE 58 mm/hr (0-20)
== END ==
LOC: M LAB REF 17:13
PROVIDERS: ATTEND Pediatrics
DX: M06.9 Rheumatoid arthritis, unspecified (principal)

== ENCOUNTER 2023-08-25 15:51 | Emergency (ER) | payer OTHER ==
[~2023-08-25] VITALS: Ht 162.6 cm; Wt 139.2 kg
[2023-08-25] MEDS ORDERED: COLC1CAP PO (16:21)
[2023-08-25] MEDS ORDERED: DELZ400C5 PO (16:21)
[2023-08-25 18:34] LABS: BASO % 0.4 % (0.0-1.0); EOS # 0.1 10^3/uL (0.0-0.5); EOS % 1.6 % (0.0-3.0); LYMPH # 2.7 10^3/uL (1.5-5.0); LYMPH % 34.1 % (24.0-44.0); MEAN CORPUSCULAR HEMOGLOBIN 29.9 pg (27.0-33.0); MEAN CORPUSCULAR HGB CONC 34.1 g/dl (32.0-36.5); MEAN CORPUSCULAR VOLUME 87.8 fl (80.0-96.0); MONO # 0.6 10^3/uL (0.0-0.8); NEUTROPHILS # 4.5 10^3/uL (1.5-8.5); NEUTROPHILS % 56.4 % (36.0-66.0); PLATELET COUNT, AUTOMATED 328 10^3/uL (150-450); RED BLOOD COUNT 5.01 10^6/uL (4.00-5.40)
[2023-08-25 18:49] LABS: LIPASE 28 U/L (12-53)
[2023-08-25 18:51] LABS: ALBUMIN 3.6 G/DL (3.2-5.2); ALKALINE PHOSPHATASE 88 U/L (46-116); ALT/SGPT 64 U/L (7.0-40); AST/SGOT 37 U/L (<34); BILIRUBIN,DIRECT < 0.1 MG/DL (<0.4); BILIRUBIN,TOTAL 0.4 MG/DL (0.3-1.2); BLOOD UREA NITROGEN 14 MG/DL (9-23); CALCIUM LEVEL 9.2 MG/DL (8.5-10.1); CARBON DIOXIDE LEVEL 31 MMOL/L (20-31); CHLORIDE LEVEL 101 MMOL/L (98-107); CREATININE FOR GFR 0.71 MG/DL (0.55-1.30); GLOMERULAR FILTRATION RATE > 60.0 (>60); GLUCOSE, FASTING 88 MG/DL (60-100); POTASSIUM SERUM 4.4 MMOL/L (3.5-5.1); SODIUM LEVEL 137 MMOL/L (136-145); TOTAL PROTEIN 7.2 G/DL (5.7-8.2)
[2023-08-25 18:53] LABS: HCG, SERUM QUALITATIVE NEGATIVE (NEGATIVE)
[2023-08-25] MEDS: PANTOPRAZOLE 40MG VIAL IV ONE (19:28)
[2023-08-25] MEDS: NS 1,000 ML IV ONE (19:28)
[2023-08-25] MEDS ORDERED: ONDA-83 PO (19:59)
[2023-08-25 20:15] VITALS: BP 138/87; TEMP 97.1; O2SAT 97
== END 2023-08-25 20:21 | disposition home or self-care (01) ==
LOC: M ED 15:51
DX: K59.00 Constipation, unspecified (principal); I10 Essential (primary) hypertension; K50.90 Crohn's disease, unspecified, without complications; F41.9 Anxiety disorder, unspecified; Z79.83 Long term (current) use of bisphosphonates; Z79.899 Other long term (current) drug therapy
CPT/HCPCS: 74018; 80047; 80048; 80076; 83690; 84703; 85025; 96361; 96374; 99284; C9113

== ENCOUNTER → 2023-08-28 | Outpatient (REF) | payer OTHER ==
[~2023-08-28] MED LIST changes: +COLC1CAP PO; +DELZ400C5 PO; +ONDA-83 PO
[2023-08-28 14:33] LABS: PERCENT SATURATION 17.3 % (13.2-45.0)
== END ==
LOC: M LAB REF 12:52
PROVIDERS: ATTEND Pediatrics
DX: K50.90 Crohn's disease, unspecified, without complications (principal)

== ENCOUNTER 2023-10-26 07:46 | Emergency (ER) | payer OTHER ==
[~2023-10-26] VITALS: Ht 162.6 cm; Wt 143.5 kg
[2023-10-26 07:47] VITALS: BP 137/97; TEMP 99.2; O2SAT 98
[2023-10-26] MEDS ORDERED: VITA200032 (08:01)
[2023-10-26] MEDS ORDERED: ERGO500029 (08:01)
[2023-10-26] MEDS ORDERED: SEMA0.252 (08:01)
[2023-10-26] MEDS ORDERED: DICY20TA20 (08:01)
[2023-10-26] MEDS ORDERED: COLC0.6T47 (08:01)
[2023-10-26] MEDS ORDERED: PANT40TA29 (08:01)
== END 2023-10-26 08:05 | disposition left against medical advice (07) ==
LOC: M ED 07:46
DX: Z53.21 Procedure and treatment not carried out due to patient leaving prior to being seen by health care provider (principal)

== ENCOUNTER → 2023-12-23 | Outpatient (REF) | payer OTHER ==
[~2023-12-23] MED LIST changes: +COLC0.6T47; +DICY20TA20; +ERGO500029; +PANT40TA29; +SEMA0.252; +VITA200032
== END ==
LOC: M LAB REF 11:52
PROVIDERS: ATTEND Pediatrics
DX: J02.9 Acute pharyngitis, unspecified (principal)

== ENCOUNTER 2024-03-30 07:58 | Emergency (ER) | payer OTHER ==
[~2024-03-30] VITALS: Ht 162.6 cm; Wt 141.6 kg
[2024-03-30] MEDS ORDERED: CYMB60CA4 PO (08:23)
[2024-03-30] MEDS ORDERED: GNP250TA9 PO (08:23)
[2024-03-30 09:38] LABS: BASO % 0.6 % (0.0-1.0); EOS # 0.1 10^3/uL (0.0-0.5); EOS % 2.4 % (0.0-3.0); HEMATOCRIT 41.1 % (36.0-47.0); HEMOGLOBIN 14.3 g/dl (12.0-15.5); LYMPH # 1.7 10^3/uL (1.5-5.0); LYMPH % 33.9 % (24.0-44.0); MEAN CORPUSCULAR HEMOGLOBIN 30.3 pg (27.0-33.0); MEAN CORPUSCULAR HGB CONC 34.8 g/dl (32.0-36.5); MEAN CORPUSCULAR VOLUME 87.1 fl (80.0-96.0); MONO # 0.5 10^3/uL (0.0-0.8); MONO % 9.7 % (2.0-8.0); NEUTROPHILS # 2.7 10^3/uL (1.5-8.5); NEUTROPHILS % 53.2 % (36.0-66.0); PLATELET COUNT, AUTOMATED 332 10^3/uL (150-450); RED BLOOD COUNT 4.72 10^6/uL (4.00-5.40)
[2024-03-30 09:54] LABS: FREE T4 1.13 NG/DL (0.89-1.76); THYROID STIMULATING HORMONE 0.563 uIU/ML (0.55-4.78)
[2024-03-30 09:57] LABS: BLOOD UREA NITROGEN 11 MG/DL (9-23); CALCIUM LEVEL 9.1 MG/DL (8.5-10.1); CARBON DIOXIDE LEVEL 28 MMOL/L (20-31); CHLORIDE LEVEL 105 MMOL/L (98-107); CK-MB VALUE MASS < 1.0 NG/ML (<3.6); CPK CREATINE PHOSPHOKINASE 130 U/L (34-145); CREATININE FOR GFR 0.53 MG/DL (0.55-1.30); GLOMERULAR FILTRATION RATE > 60.0 (>60); GLUCOSE, FASTING 102 MG/DL (60-100); MAGNESIUM LEVEL 1.8 MG/DL (1.8-2.4); MB/CK RELATIVE INDEX 0.76 (< OR =4); POTASSIUM SERUM 4.6 MMOL/L (3.5-5.1); SODIUM LEVEL 138 MMOL/L (136-145)
[2024-03-30 11:15] VITALS: BP 133/78; TEMP 98.8; O2SAT 98
== END 2024-03-30 11:22 | disposition home or self-care (01) ==
LOC: M ED 07:58
DX: R55 Syncope and collapse (principal); M54.50 Low back pain, unspecified; K58.9 Irritable bowel syndrome, unspecified; F41.9 Anxiety disorder, unspecified; Z90.49 Acquired absence of other specified parts of digestive tract; Z79.899 Other long term (current) drug therapy

== ENCOUNTER → 2024-04-06 | Outpatient (CLI) | payer OTHER ==
[~2024-04-06] MED LIST changes: +CYMB60CA4 PO; +GNP250TA9 PO
== END ==
LOC: M RAD 11:25
PROVIDERS: ATTEND Physician Assistant
DX: R60.0 Localized edema (principal)

== ENCOUNTER → 2024-04-14 | Outpatient (CLI) | payer OTHER | LOC: M EKG 15:43 | PROVIDERS: ATTEND Physician Assistant | DX: R42 Dizziness and giddiness (principal) ==

== ENCOUNTER → 2024-09-20 | Outpatient (REF) | payer OTHER ==
[~2024-09-20] MED LIST changes: +FLUD0.1T; +SULF1TAB23 PO
== END ==
LOC: M LAB REF 17:18
PROVIDERS: ATTEND Pediatrics
DX: R30.0 Dysuria (principal)

== ENCOUNTER 2024-09-29 12:14 | Emergency (ER) | payer OTHER ==
[~2024-09-29] VITALS: Ht 162.6 cm; Wt 143.8 kg
[~2024-09-29 12:14] MED LIST changes: -FLUD0.1T; -SULF1TAB23 PO
[2024-09-29] MEDS ORDERED: FLUD0.1T (13:08)
[2024-09-29 14:08] LABS: BASO # 0.0 10^3/uL (0.0-0.2); BASO % 0.7 % (0.0-1.0); EOS # 0.1 10^3/uL (0.0-0.5); EOS % 2.4 % (0.0-3.0); LYMPH # 2.4 10^3/uL (1.5-5.0); LYMPH % 41.0 % (24.0-44.0); MONO # 0.4 10^3/uL (0.0-0.8); MONO % 6.7 % (2.0-8.0); NEUTROPHILS # 2.8 10^3/uL (1.5-8.5); NEUTROPHILS % 48.3 % (36.0-66.0); PLATELET COUNT, AUTOMATED 406 10^3/uL (150-450)
[2024-09-29 14:12] LABS: KETONE, URINE AUTO RFX NEGATIVE (NEGATIVE); MUCUS, URINE RFX SMALL (NEGATIVE); RBC, URINE AUTO RFX 1 /HPF (0-3); SQUAM EPITHELIAL CELL UR AURFX 1 /HPF (0-6)
[2024-09-29 14:17] LABS: LEUKOCYTE ESTERASE UR AUTO RFX TRACE (NEGATIVE); NITRITE, URINE AUTO RFX POSITIVE (NEGATIVE); WBC, URINE AUTO RFX 25 /HPF (0-3)
[2024-09-29 14:31] LABS: ALT/SGPT 54 U/L (7.0-40); AST/SGOT 30 U/L (<34); CALCIUM LEVEL 9.2 MG/DL (8.5-10.1); CARBON DIOXIDE LEVEL 28 MMOL/L (20-31); CHLORIDE LEVEL 103 MMOL/L (98-107); CREATININE FOR GFR 0.63 MG/DL (0.55-1.30); GLOMERULAR FILTRATION RATE > 90.0 (>60); POTASSIUM SERUM 4.7 MMOL/L (3.5-5.1); SODIUM LEVEL 142 MMOL/L (136-145)
[2024-09-29 14:59] LABS: HCG, SERUM QUALITATIVE NEGATIVE (NEGATIVE)
[2024-09-29] MEDS ORDERED: ISOVUE-370 76% 100 ML VIAL As Ordered ONE (18:46)
[2024-09-29] MEDS ORDERED: PRED20TA PO (21:55)
[2024-09-29 21:56] VITALS: BP 149/84; TEMP 97.4; O2SAT 99
[2024-09-29] MEDS ORDERED: SULF1TAB23 PO (22:03)
== END 2024-09-29 22:06 | disposition home or self-care (01) ==
LOC: M ED 12:14
DX: K50.911 Crohn's disease, unspecified, with rectal bleeding (principal); N39.0 Urinary tract infection, site not specified; G90.A Postural orthostatic tachycardia syndrome [POTS]; Z86.718 Personal history of other venous thrombosis and embolism; K57.92 Diverticulitis of intestine, part unspecified, without perforation or abscess without bleeding; Z90.49 Acquired absence of other specified parts of digestive tract; Z90.710 Acquired absence of both cervix and uterus; Z79.899 Other long term (current) drug therapy
CPT/HCPCS: 36415; 74174; 80048; 80076; 81001; 83690; 84703; 85025; 87088; 87186; 99284; Q9967

== ENCOUNTER → 2025-01-27 | Outpatient (REF) | payer OTHER ==
[~2025-01-27] MED LIST changes: -COLC0.6T47; +COLC0.6T53; +FLUD0.1T; +SULF1TAB23 PO
[2025-01-27 12:56] LABS: CHOLESTEROL LEVEL 252.0 MG/DL (<200); CHOLESTEROL RISK RATIO 6.23 (<5); LDL CHOLESTEROL 172.4 MG/DL (<100); NON-HDL-C 211.6 MG/DL; TRIGLYCERIDES LEVEL 196.0 MG/DL (<150)
[2025-01-27 13:19] LABS: ESTIMATED AVERAGE GLUCOSE 117.0 MG/DL (60-110)
== END ==
LOC: M LAB REF 12:14
PROVIDERS: ATTEND Pediatrics
DX: E78.5 Hyperlipidemia, unspecified (principal); E66.01 Morbid (severe) obesity due to excess calories

== ENCOUNTER 2025-03-01 09:59 | Emergency (ER) | payer OTHER ==
[~2025-03-01] VITALS: Ht 160 cm; Wt 144.6 kg
[~2025-03-01 09:59] MED LIST changes: +SULF-7 PO; -SULF1TAB23 PO
[2025-03-01 11:03] LABS: BASO # 0.0 10^3/uL (0.0-0.2); BASO % 0.6 % (0.0-1.0); EOS # 0.1 10^3/uL (0.0-0.5); EOS % 1.9 % (0.0-3.0); LYMPH # 1.8 10^3/uL (1.5-5.0); LYMPH % 25.7 % (24.0-44.0); MONO # 0.5 10^3/uL (0.0-0.8); MONO % 7.2 % (2.0-8.0); NEUTROPHILS # 4.5 10^3/uL (1.5-8.5); NEUTROPHILS % 64.3 % (36.0-66.0); PLATELET COUNT, AUTOMATED 342 10^3/uL (150-450)
[2025-03-01 11:28] LABS: ALT/SGPT 70 U/L (7.0-40); AST/SGOT 45 U/L (<34); CALCIUM LEVEL 8.9 MG/DL (8.5-10.1); CARBON DIOXIDE LEVEL 23 MMOL/L (20-31); CHLORIDE LEVEL 108 MMOL/L (98-107); CREATININE FOR GFR 0.80 MG/DL (0.55-1.30); GLOMERULAR FILTRATION RATE > 90.0 (>60); POTASSIUM SERUM 4.0 MMOL/L (3.5-5.1); SODIUM LEVEL 141 MMOL/L (136-145)
[2025-03-01] MEDS: NS (Normal Saline) 0.9% 1,000 ML IV ONE (12:56)
[2025-03-01] MEDS ORDERED: LOPE-39 PO (13:59)
[2025-03-01 14:04] VITALS: BP 130/62; TEMP 98.8; O2SAT 98
== END 2025-03-01 14:30 | disposition home or self-care (01) ==
LOC: M ED 09:59
DX: R10.9 Unspecified abdominal pain (principal); R19.7 Diarrhea, unspecified; K50.90 Crohn's disease, unspecified, without complications; E66.9 Obesity, unspecified; Z79.899 Other long term (current) drug therapy; Z79.52 Long term (current) use of systemic steroids